=== PATIENT | female | born 1985 | race Caucasian/White ===

== ENCOUNTER 2017-09-06 21:43 | Emergency (ER) | payer MEDICAID ==
--- NOTE | 2017-09-06 22:38 | EDM.PDOC ---
ED HPI GENERAL MEDICAL PROBLEM - General Chief Complaint: General Stated Complaint: ABDOMINAL PAIN / RESTLESS LEGS Time Seen by Provider: 09/06/17 22:27 Source of Information: Reports: Patient, RN Notes Reviewed History Limitations: Reports: No Limitations - History of Present Illness INITIAL COMMENTS - FREE TEXT/NARRATIVE: 32-year-old female presents emergency department today with leg discomfort she is postop day 8 from gastric bypass she states she's doing well in that aspect but she's had this uncomfortable restless feeling in her legs for the last day or so and is progressively getting worse - Related Data Allergies Allergy/AdvReac Type Severity Reaction Status Date / Time No Known Allergies Allergy Verified 09/06/17 22:15 Home Meds: Home Meds . [Unable to Verify Home Med List] 09/06/17 [History] Past Medical History Gastrointestinal History: Reports: Irritable Bowel Syndrome PSYCHOLOGY FELLOW History: Reports: Endometrial Ablation, Endocrine/Metabolic History: Reports: Diabetes, Type II, Obesity/BMI 30+ - Past Surgical History GI Surgical History: Reports: Bariatric Procedure, Cholecystectomy, Colonoscopy , EGD Female Surgical History: Reports: Hysterectomy Social & Family History - Tobacco Use Smoking Status *Q: Never Smoker - Caffeine Use Caffeine Use: Reports: None - Recreational Drug Use Recreational Drug Use: No ED ROS GENERAL - Review of Systems Review Of Systems: See Below Constitutional: Reports: No Symptoms Respiratory: Reports: No Symptoms Cardiovascular: Reports: No Symptoms GI/Abdominal: Reports: No Symptoms Musculoskeletal: Reports: Leg Pain, Muscle Pain ED EXAM, GENERAL - Physical Exam Exam: See Below Free Text/Narrative:: Examination of lower extremities I don't appreciate any edema there is no erythema full range of motion both lower extremities, no tenderness to palpation Exam Limited By: No Limitations General Appearance: Alert, WD/WN, No Apparent Distress Respiratory/Chest: No Respiratory Distress Course - Vital Signs Last Recorded V/S: Last Vital Signs Temp 97.7 F 09/06/17 22:17 Pulse 73 09/06/17 22:17 Resp 18 09/06/17 22:17 BP 116/84 09/06/17 22:17 Pulse Ox 96 09/06/17 22:17 - Orders/Labs/Meds Orders: Active Orders 24 hr Category Date Time Status VL Duplex Lwr Ext Veins Comp [US] Stat Exams 09/06/17 22:30 Taken Labs: Laboratory Tests 09/06/17 09/06/17 Range/Units 22:30 22:30 WBC 9.1 (4.5-11.0) K/uL RBC 4.50 (3.30-5.50) M/uL Hgb 13.0 (12.0-15.0) g/dL Hct 38.6 (36.0-48.0) % MCV 86 (80-98) fL MCH 29 (27-31) pg MCHC 34 (32-36) % Plt Count 398 (150-400) K/uL Neut % (Auto) 58 (36-66) % Lymph % (Auto) 30 (24-44) % Long % (Auto) 8 H (2-6) % Eos % (Auto) 4 (2-4) % Baso % (Auto) 0 (0-1) % Sodium 146 (140-148) mmol/L Potassium 3.8 (3.6-5.2) mmol/L Chloride 105 (100-108) mmol/L Carbon Dioxide 31 (21-32) mmol/L Anion Gap 10.4 (5.0-14.0) mmol/L BUN 10 (7-18) mg/dL Creatinine 0.8 (0.6-1.0) mg/dL Est Cr Clr Drug Dosing 71.17 mL/min Estimated GFR (MDRD) > 60 (>60) Glucose 101 (74-106) mg/dL Calcium 8.7 (8.5-10.1) mg/dL Meds: Medications Discontinued Medications Generic Name Dose Route Start Last Admin Trade Name Freq PRN Reason Stop Dose Admin Hydrocodone Bitart/Acetaminophen 5 ml 09/06/17 23:10 09/06/17 23:18 Acetaminophen/Hydrocodone 108-2.5 Mg/5 Ml PO 09/06/17 23:11 5 ml ONETIME ONE Administration Pramipexole Dihydrochloride 0.125 mg 09/06/17 23:41 09/06/17 23:53 Mirapex PO 09/06/17 23:42 0.125 mg NOW STA Administration Departure - Departure Time of Disposition: 00:18 Disposition: Home, Self-Care 01 Condition: Good Clinical Impression: Restless leg - Discharge Information Referrals: Janie Sharpe MD [Primary Care Provider] - Forms: ED Department Discharge Additional Instructions: Try the Mirapex as needed at night, keep your follow-up appointment with your primary care provider on Monday, call return to the emergency department with worsening of symptoms - My Orders Last 24 Hours: My Active Orders 09/06/17 22:30 VL Duplex Lwr Ext Veins Comp [US] Stat - Assessment/Plan Last 24 Hours: My Active Orders 09/06/17 22:30 VL Duplex Lwr Ext Veins Comp [US] Stat Plan: Assessment Acuity = acute Site and laterality = restless legs complicated patient is postop day 8 gastric bypass Etiology = unclear etiology Manifestations = none Location of injury = Home Lab values = CBC, BMP unremarkable ultrasound lower extremities bilaterally is negative Plan She was given 1 dose of Mirapex 0.125 mg which did provide significant relief enough that she could get some rest discharge home with Mirapex 0.125 mg 1 tab by mouth daily at bedtime total #20 she has a follow-up appointment with her primary care provider on Monday This note was dictated using [employer] voice recognition software please call with any questions on syntax or aldo.
[2017-09-06] MEDS ORDERED: Acetaminophen/HYDROcodone 108-2.5 MG/5 ML Soln 15 ML UD Cup PO ONE (23:10)
[2017-09-06] MEDS ORDERED: Pramipexole 0.5 MG Tab PO STA (23:41)
--- NOTE | 2017-09-07 09:00 | US ---
BILATERAL LOWER EXTREMITY VENOUS DOPPLER STUDY CLINICAL HISTORY: : Bilateral leg pain FINDINGS: Real-time and Doppler images were obtained through both lower extremities from the common f emoral veins to the calf veins. Patient is evaluated for flow, compressibility and augmentation. No filling defects are identified. All deep veins were compressible. There was normal flow and augmen tation. IMPRESSION: No evidence of deep venous thrombosis in either lower extremity
== END 2017-09-07 00:32 | disposition home or self-care (01) ==
LOC: JP.ED 21:43
DX: G25.81 Restless legs syndrome (principal); E11.9 Type 2 diabetes mellitus without complications; E66.9 Obesity, unspecified; Z98.890 Other specified postprocedural states
CPT/HCPCS: 36415; 80048; 85025; 93970; 99284; A9270

== ENCOUNTER 2017-12-22 19:23 | Emergency (ER) | payer MEDICAID ==
--- NOTE | 2017-12-22 20:09 | EDM.PDOC ---
ED HPI GENERAL MEDICAL PROBLEM - General Chief Complaint: General Stated Complaint: SHAKING Time Seen by Provider: 12/22/17 20:06 Source of Information: Reports: Patient History Limitations: Reports: No Limitations - History of Present Illness INITIAL COMMENTS - FREE TEXT/NARRATIVE: pt has had a fine tremor that gets very severe at times. Onset: Gradual, Other ( this has gone on for a long time. ) Duration: Week(s): Location: Reports: Upper Extremity, Left, Upper Extremity, Right, Lower Extremity, Left, Lower Extremity, Right ( She gets some numbness in the lower extremities when she has the shaking. 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, Endocrine/Metabolic History: Reports: Diabetes, Type II, Obesity/BMI 30+ - Past Surgical History GI Surgical History: Reports: Bariatric Procedure, Cholecystectomy, Colonoscopy , EGD Female Surgical History: Reports: Hysterectomy Social & Family History - Caffeine Use Caffeine Use: Reports: None ED ROS GENERAL - Review of Systems Review Of Systems: See Below Constitutional: Reports: No Symptoms HEENT: Reports: No Symptoms Respiratory: Reports: No Symptoms Cardiovascular: Reports: No Symptoms Endocrine: Reports: No Symptoms GI/Abdominal: Reports: No Symptoms : Reports: No Symptoms Musculoskeletal: Reports: Other ( Pt has a fine tremor. ) Skin: Reports: No Symptoms ED EXAM, GENERAL - Physical Exam Exam: See Below Free Text/Narrative:: pt arrived with a history of tremor which has been most of her life. She feels this is getting worse. Exam Limited By: No Limitations General Appearance: Alert, Other (pupils equal and reactive. ) Ears: Normal TMs Nose: Normal Inspection Throat/Mouth: Normal Inspection Head: Atraumatic Neck: Normal Inspection Respiratory/Chest: No Respiratory Distress Cardiovascular: Regular Rate, Rhythm GI/Abdominal: Soft, Non-Tender Rectal (Female) Exam: Deferred Back Exam: Normal Inspection Extremities: Other (pt has severe tremor at times and has numbness in both legs. ) Neurological: Alert, Oriented, Normal Cognition Course - Vital Signs Last Recorded V/S: Last Vital Signs Temp 36.5 C 12/22/17 20:03 Pulse 55 L 12/22/17 20:03 Resp 15 12/22/17 20:03 BP 126/70 12/22/17 20:03 Pulse Ox 95 12/22/17 20:03 - Orders/Labs/Meds Orders: Active Orders 24 hr Category Date Time Status CULTURE STREP A CONFIRMATION [RM] Stat Lab 12/22/17 20:04 Results CULTURE URINE [] Stat Lab 12/22/17 20:30 Received SAMMI PREP [MYC] Stat Lab 12/22/17 20:07 Ordered STREP SCRN A RAPID W CULT CONF [RM] Stat Lab 12/22/17 20:04 Ordered UA W/MICROSCOPIC [URIN] Urgent Lab 12/22/17 20:13 Ordered Labs: Laboratory Tests 12/22/17 12/22/17 12/22/17 Range/Units 20:13 20:23 20:23 WBC 6.9 (4.5-11.0) K/uL RBC 4.35 (3.30-5.50) M/uL Hgb 12.8 (12.0-15.0) g/dL Hct 38.2 (36.0-48.0) % MCV 88 (80-98) fL MCH 29 (27-31) pg MCHC 34 (32-36) % Plt Count 310 (150-400) K/uL Neut % (Auto) 47 (36-66) % Lymph % (Auto) 44 (24-44) % [place] % (Auto) 7 H (2-6) % Eos % (Auto) 2 (2-4) % Baso % (Auto) 0 (0-1) % Sodium (140-148) mmol/L Potassium (3.6-5.2) mmol/L Chloride (100-108) mmol/L Carbon Dioxide (21-32) mmol/L Anion Gap (5.0-14.0) mmol/L BUN (7-18) mg/dL Creatinine (0.6-1.0) mg/dL Est Cr Clr Drug Dosing mL/min Estimated GFR (MDRD) (>60) Glucose (74-106) mg/dL Calcium (8.5-10.1) mg/dL Total Bilirubin (0.2-1.0) mg/dL AST (15-37) U/L ALT (12-78) U/L Alkaline Phosphatase (46-116) U/L Total Protein (6.4-8.2) g/dL Albumin (3.4-5.0) g/dL Globulin (2.3-3.5) g/dL Albumin/Globulin Ratio (1.2-2.2) TSH, Ultra Sensitive 0.720 (0.358-3.740) uIU/mL Urine Color Yellow Urine Appearance Clear Urine pH 6.0 (4.5-8.0) Ur Specific [place] 1.025 (1.008-1.030) Urine Protein Negative (NEGATIVE) mg/dL Urine Glucose (UA) Normal (NEGATIVE) mg/dL Urine Ketones Negative (NEGATIVE) mg/dL Urine Occult Blood Negative (NEGATIVE) Urine Nitrite Negative (NEGATIVE) Urine Bilirubin Small (NEGATIVE) Urine Urobilinogen 1 (NORMAL) mg/dL Ur Leukocyte Esterase Negative (NEGATIVE) Urine RBC 0-5 (0-5) Urine WBC 10-20 H (0-5) Ur Epithelial Cells Few Amorphous Sediment Not seen Urine Bacteria Moderate Urine Mucus Many 12/22/17 Range/Units 20:23 WBC (4.5-11.0) K/uL RBC (3.30-5.50) M/uL Hgb (12.0-15.0) g/dL Hct (36.0-48.0) % MCV (80-98) fL MCH (27-31) pg MCHC (32-36) % Plt Count (150-400) K/uL Neut % (Auto) (36-66) % Lymph % (Auto) (24-44) % [place] % (Auto) (2-6) % Eos % (Auto) (2-4) % Baso % (Auto) (0-1) % Sodium 144 (140-148) mmol/L Potassium 3.6 (3.6-5.2) mmol/L Chloride 106 (100-108) mmol/L Carbon Dioxide 29 (21-32) mmol/L Anion Gap 9.3 (5.0-14.0) mmol/L BUN 12 (7-18) mg/dL Creatinine 0.7 (0.6-1.0) mg/dL Est Cr Clr Drug Dosing 81.34 mL/min Estimated GFR (MDRD) > 60 (>60) Glucose 95 (74-106) mg/dL Calcium 8.4 L (8.5-10.1) mg/dL Total Bilirubin 0.4 (0.2-1.0) mg/dL AST 15 (15-37) U/L ALT 32 (12-78) U/L Alkaline Phosphatase 75 (46-116) U/L Total Protein 7.5 (6.4-8.2) g/dL Albumin 3.7 (3.4-5.0) g/dL Globulin 3.8 H (2.3-3.5) g/dL Albumin/Globulin Ratio 1.0 L (1.2-2.2) TSH, Ultra Sensitive (0.358-3.740) uIU/mL Urine Color Urine Appearance Urine pH (4.5-8.0) Ur Specific [place] (1.008-1.030) Urine Protein (NEGATIVE) mg/dL Urine Glucose (UA) (NEGATIVE) mg/dL Urine Ketones (NEGATIVE) mg/dL Urine Occult Blood (NEGATIVE) Urine Nitrite (NEGATIVE) Urine Bilirubin (NEGATIVE) Urine Urobilinogen (NORMAL) mg/dL Ur Leukocyte Esterase (NEGATIVE) Urine RBC (0-5) Urine WBC (0-5) Ur Epithelial Cells Amorphous Sediment Urine Bacteria Urine Mucus - Re-Assessments/Exams Free Text/Narrative Re-Assessment/Exam: 12/22/17 21:22 sammi was positive, strept was neg. lsb is normal except pt has a UTI 12/22/17 21:23 Departure - Departure Time of Disposition: 21:23 Disposition: Home, Self-Care 01 Condition: Fair Clinical Impression: Oral yeast infection, UTI (urinary tract infection) - Discharge Information Referrals: Janie Sharpe MD [Primary Care Provider] - Forms: ED Department Discharge Care Plan Goals: push fluids, cipro 500mg bid for 5 days, [id number] 1 tab no and repeat in 5 days. When pt sees her regular provider she may need to have a referal to neurology - My Orders Last 24 Hours: My Active Orders 12/22/17 20:04 CULTURE STREP A CONFIRMATION [RM] Stat STREP SCRN A RAPID W CULT CONF [RM] Stat 12/22/17 20:07 SAMMI PREP [MYC] Stat 12/22/17 20:13 UA W/MICROSCOPIC [URIN] Urgent 12/22/17 20:30 CULTURE URINE [RM] Stat - Assessment/Plan Last 24 Hours: My Active Orders 12/22/17 20:04 CULTURE STREP A CONFIRMATION [] Stat STREP SCRN A RAPID W CULT CONF [RM] Stat 12/22/17 20:07 SAMMI PREP [MYC] Stat 12/22/17 20:13 UA W/MICROSCOPIC [URIN] Urgent 12/22/17 20:30 CULTURE URINE [] Stat
== END 2017-12-22 21:48 | disposition home or self-care (01) ==
LOC: JP.ED 19:23
DX: N39.0 Urinary tract infection, site not specified (principal); B37.0 Candidal stomatitis; E11.9 Type 2 diabetes mellitus without complications
CPT/HCPCS: 36415; 80053; 81001; 84443; 85025; 87081; 87086; 87220; 87430; 99285

== ENCOUNTER 2018-02-10 19:01 | Emergency (ER) | payer MEDICAID ==
--- NOTE | 2018-02-10 19:45 | EDM.PDOC ---
ED HPI GENERAL MEDICAL PROBLEM - General Chief Complaint: Abdominal Pain Stated Complaint: MEDICAL VIA [facility] Time Seen by Provider: 02/10/18 19:03 Source of Information: Reports: Patient History Limitations: Reports: No Limitations - History of Present Illness INITIAL COMMENTS - FREE TEXT/NARRATIVE: 32 yo female arrives via ambulance, pt regular day then sudden onset of palvic pain radiating into left upper quad. earlyer this moth she was tx for UTI. occasional dysuria. 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, Psychiatric History: Reports: Anxiety Endocrine/Metabolic History: Reports: Diabetes, Type II, Obesity/BMI 30+, Other (See Below) Other Endocrine/Metabolic History: non diabetic since bariatric surgery - Past Surgical History GI Surgical History: Reports: Bariatric Procedure, Cholecystectomy, Colonoscopy , EGD Female Surgical History: Reports: Hysterectomy Social & Family History - Tobacco Use Smoking Status *Q: Never Smoker - Caffeine Use Caffeine Use: Reports: None - Recreational Drug Use Recreational Drug Use: No ED ROS GENERAL - Review of Systems Review Of Systems: See Below Constitutional: Denies: Fever, Chills, Fatigue Respiratory: Denies: Shortness of Breath, Wheezing Cardiovascular: Denies: Chest Pain GI/Abdominal: Reports: Abdominal Pain : Reports: Dysuria, Flank Pain. Denies: Discharge, Frequency ED EXAM, GI/ABD - Physical Exam Exam: See Below Exam Limited By: No Limitations General Appearance: Alert, WD/WN, No Apparent Distress Respiratory/Chest: No Respiratory Distress, Lungs Clear, Normal Breath Sounds, Chest Non-Tender. No: Crackles, Rhonchi, Wheezing Cardiovascular: Regular Rate, Rhythm, No Edema, No Murmur, No Rub GI/Abdominal Exam: Normal Bowel Sounds, Soft, No Organomegaly, No Distention, No Mass, Tender (general upper) Course - Vital Signs Last Recorded V/S: Last Vital Signs Temp 36.6 C 02/10/18 19:37 Pulse 64 02/10/18 20:53 Resp 14 02/10/18 20:53 BP 122/81 02/10/18 20:53 Pulse Ox 94 L 02/10/18 20:53 - Orders/Labs/Meds Orders: Active Orders 24 hr Category Date Time Status UA W/MICROSCOPIC [URIN] Stat Lab 02/10/18 20:50 Ordered Sodium Chloride 0.9% [Normal Saline] 1,000 ml Med 02/10/18 19:45 Active IV ASDIRECTED Medication Orders Sodium Chloride (Normal Saline) 1,000 mls @ 999 mls/hr IV ASDIRECTED TYLER Last Admin: 02/10/18 20:07 Dose: 999 mls/hr Labs: Laboratory Tests 02/10/18 02/10/18 02/10/18 Range/Units 19:55 19:55 20:50 WBC 7.1 (4.5-11.0) K/uL RBC 4.35 (3.30-5.50) M/uL Hgb 12.9 (12.0-15.0) g/dL Hct 38.4 (36.0-48.0) % MCV 88 (80-98) fL MCH 30 (27-31) pg MCHC 34 (32-36) % Plt Count 281 (150-400) K/uL Neut % (Auto) 50 (36-66) % Lymph % (Auto) 39 (24-44) % [place] % (Auto) 9 H (2-6) % Eos % (Auto) 2 (2-4) % Baso % (Auto) 0 (0-1) % Sodium 146 (140-148) mmol/L Potassium 3.6 (3.6-5.2) mmol/L Chloride 107 (100-108) mmol/L Carbon Dioxide 31 (21-32) mmol/L Anion Gap 8.2 (5.0-14.0) mmol/L BUN 11 (7-18) mg/dL Creatinine 0.7 (0.6-1.0) mg/dL Est Cr Clr Drug Dosing 81.34 mL/min Estimated GFR (MDRD) > 60 (>60) Glucose 75 (74-106) mg/dL Calcium 8.4 L (8.5-10.1) mg/dL Total Bilirubin 0.4 (0.2-1.0) mg/dL AST 15 (15-37) U/L ALT 31 (12-78) U/L Alkaline Phosphatase 83 (46-116) U/L Total Protein 7.1 (6.4-8.2) g/dL Albumin 3.6 (3.4-5.0) g/dL Globulin 3.5 (2.3-3.5) g/dL Albumin/Globulin Ratio 1.0 L (1.2-2.2) Urine Color Yellow Urine Appearance Clear Urine pH 8.0 (4.5-8.0) Ur Specific [place] 1.015 (1.008-1.030) Urine Protein Negative (NEGATIVE) mg/dL Urine Glucose (UA) Normal (NEGATIVE) mg/dL Urine Ketones Negative (NEGATIVE) mg/dL Urine Occult Blood Negative (NEGATIVE) Urine Nitrite Negative (NEGATIVE) Urine Bilirubin Negative (NEGATIVE) Urine Urobilinogen Normal (NORMAL) mg/dL Ur Leukocyte Esterase Moderate (NEGATIVE) Urine RBC 0-5 (0-5) Urine WBC 0-5 (0-5) Ur Epithelial Cells Few Amorphous Sediment Few Urine Bacteria Rare Urine Mucus Few Meds: Medications Generic Name Dose Route Start Last Admin Trade Name Freq PRN Reason Stop Dose Admin Sodium Chloride 1,000 mls @ 999 mls/hr 02/10/18 19:45 02/10/18 20:07 Normal Saline IV 999 mls/hr ASDIRECTED TYLER Administration Discontinued Medications Generic Name Dose Route Start Last Admin Trade Name Freq PRN Reason Stop Dose Admin Ondansetron HCl 4 mg 02/10/18 19:42 02/10/18 20:12 Zofran IVPUSH 02/10/18 19:43 4 mg ONETIME ONE Administration Pantoprazole Sodium 40 mg 02/10/18 19:41 02/10/18 20:12 Protonix Iv IVPUSH 02/10/18 19:42 40 mg ONETIME ONE Administration - Re-Assessments/Exams Free Text/Narrative Re-Assessment/Exam: 02/10/18 21:13 pain improved 2/10, mildly nauseated ready to go home. instructed to return to soft diet until pain resolves if pain does not resolve by Monday follow-up with surgeon Departure - Departure Time of Disposition: 21:15 Disposition: Home, Self-Care 01 Condition: Good Clinical Impression: Gastroenteritis - Discharge Information *PRESCRIPTION DRUG MONITORING PROGRAM REVIEWED*: Not Applicable *COPY OF PRESCRIPTION DRUG MONITORING REPORT IN PATIENT [place]: Not Applicable Instructions: Nausea and Vomiting, Adult, [id number] Referrals: PCP,None [Primary Care Provider] - Forms: ED Department Discharge Additional Instructions: zofran as needed for nausea return to soft diet until pain resolves maintain hydration - My Orders Last 24 Hours: My Active Orders 02/10/18 19:45 Sodium Chloride 0.9% [Normal Saline] 1,000 ml IV ASDIRECTED 02/10/18 20:50 UA W/MICROSCOPIC [URIN] Stat - Assessment/Plan Last 24 Hours: My Active Orders 02/10/18 19:45 Sodium Chloride 0.9% [Normal Saline] 1,000 ml IV ASDIRECTED 02/10/18 20:50 UA W/MICROSCOPIC [URIN] Stat
[2018-02-10] MEDS: Sodium Chloride 0.9% 1,000 ML IV SCH (20:07)
[2018-02-10] MEDS: Ondansetron 4 MG/2 ML SDV IVPUSH ONE (20:12)
[2018-02-10] MEDS: Pantoprazole 40 MG Vial IVPUSH ONE (20:12)
== END 2018-02-10 21:29 | disposition home or self-care (01) ==
LOC: JP.ED 19:01
DX: K52.9 Noninfective gastroenteritis and colitis, unspecified (principal); E11.9 Type 2 diabetes mellitus without complications; E66.9 Obesity, unspecified
CPT/HCPCS: 36415; 80053; 81001; 85025; 96361; 96374; 96375; 99284; C9113; J2405; J7030

== ENCOUNTER 2018-12-01 19:00 | Emergency (ER) | payer MEDICAID ==
[2018-12-01] MEDS ORDERED: Sodium Chloride 0.9% 10 ML Syringe FLUSH PRN (19:27)
--- NOTE | 2018-12-01 19:42 | EDM.PDOC ---
ED HPI GENERAL MEDICAL PROBLEM - General Chief Complaint: Abdominal Pain Stated Complaint: LEFT SIDE UPPER ABDOMINAL PAIN Time Seen by Provider: 12/01/18 19:25 Source of Information: Reports: Patient, RN History Limitations: Reports: Other (minimal old records) - History of Present Illness INITIAL COMMENTS - FREE TEXT/NARRATIVE: 33 yo female from [place], [place] presents with LUQ abdominal pain that she states is from adhesions. She has no fever, vomiting, melena, constipation or diarrhea. She had Ele-N-Y gastric bypass in [place], [place] in the recent past and that surgeon is the one who told her that this was her problem and that he did not want to operate on her at this time. She went to the ER in [place] a week ago and had a work up and was told to follow up with her primary. She talked to the primary who didn't want to do anything about this at this time. Her surgeon prescribed Tramadol for her pain, but this was for some unknown reason not covered by her insurance company so she didn't get it filled. A friend told her about Dr. Sharpe so she called recently and talked to Maryjane Monroe who told her that if she gets worse to come to the ER in [place]. She presents now admitting that she is not worse, but tired of dealing with it. Onset: Unknown/Unsure Duration: Week(s):, Chronic, Constant Location: Reports: Abdomen (LUQ) Quality: Reports: Dull Severity: Moderate Improves with: Reports: None Worsens with: Reports: None Context: Reports: Other (see HPI) Associated Symptoms: Denies: Chest Pain, Cough, Diaphoresis, Fever/Chills, Loss of Appetite, Malaise, Nausea/Vomiting, Rash, Shortness of Breath Treatments SAP BI ARCHITECT: Reports: Acetaminophen - Related Data Allergies Allergy/AdvReac Type Severity Reaction Status Date / Time No Known Allergies Allergy Verified 12/01/18 19:11 Home Meds: Home Meds Estradiol 12/01/18 [History] Pantoprazole [ProTONIX] 12/01/18 [History] Past Medical History HEENT History: Reports: Impaired Vision Respiratory History: Reports: Sleep Apnea, Other (See Below) Other Respiratory History: Cpap Gastrointestinal History: Reports: Irritable Bowel Syndrome 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, Psychiatric History: Reports: Anxiety Endocrine/Metabolic History: Reports: Diabetes, Type II, Obesity/BMI 30+, Other (See Below) Other Endocrine/Metabolic History: non diabetic since bariatric surgery - Past Surgical History GI Surgical History: Reports: Bariatric Procedure, Cholecystectomy, Colonoscopy , EGD Female Surgical History: Reports: Hysterectomy Social & Family History - Tobacco Use Smoking Status *Q: Never Smoker - Caffeine Use Caffeine Use: Reports: None ED ROS GENERAL - Review of Systems Review Of Systems: See Below Constitutional: Reports: No Symptoms HEENT: Reports: No Symptoms Respiratory: Reports: No Symptoms Cardiovascular: Reports: No Symptoms Endocrine: Reports: No Symptoms GI/Abdominal: Reports: Abdominal Pain (LUQ). Denies: Anorexia, Black Stool, Bloody Stool, Constipation, Diarrhea, Decreased Appetite, Distension, Hematemesis, Hematochezia, Melena, Nausea, Vomiting : Reports: No Symptoms Musculoskeletal: Reports: No Symptoms Skin: Reports: No Symptoms Neurological: Reports: No Symptoms ED EXAM, GI/ABD - Physical Exam Exam: See Below Exam Limited By: No Limitations General Appearance: Alert, WD/WN, No Apparent Distress Eyes: Bilateral: Normal Appearance Ears: Normal External Exam, Normal Canal, Hearing Grossly Normal, Normal TMs Nose: Normal Inspection, No Blood Throat/Mouth: Normal Inspection, Normal Lips, Normal Oropharynx, Normal Voice, No Airway Compromise Head: Atraumatic, Normocephalic Neck: Normal Inspection, Supple, Non-Tender Respiratory/Chest: No Respiratory Distress, Lungs Clear, Normal Breath Sounds, No Accessory Muscle Use Cardiovascular: Regular Rate, Rhythm, No Edema GI/Abdominal Exam: Normal Bowel Sounds, Soft, Non-Tender, No Distention Back Exam: Normal Inspection. No: CVA Tenderness (R), CVA Tenderness (L) Extremities: Normal Inspection, Normal Range of Motion, Non-Tender, No Pedal Edema Neurological: Alert, Oriented, CN II-XII Intact, Normal Cognition, No Motor/ Sensory Deficits Psychiatric: Normal Affect, Normal Mood Skin Exam: Warm, Dry, Normal Color, No Rash Course - Vital Signs Text/Narrative:: Discussed with Dr. Adorno @ [id number] Some relief with tizanidine po. Last Recorded V/S: Last Vital Signs Temp 36.0 C 12/01/18 19:17 Pulse 58 L 12/01/18 21:03 Resp 16 12/01/18 21:03 BP 117/74 12/01/18 21:03 Pulse Ox 98 12/01/18 21:03 - Orders/Labs/Meds Orders: Active Orders 24 hr Category Date Time Status Iopamidol [Isovue-370 (76%)] Med 12/01/18 21:15 Active 100 ml IV . DIRECTED Sodium Chloride 0.9% [Saline Flush] Med 12/01/18 19:27 Active 10 ml FLUSH ASDIRECTED PRN Saline Lock Insert [OM.PC] Routine Oth 12/01/18 19:27 Ordered Medication Orders Iopamidol (Isovue-370 (76%)) 100 ml IV . DIRECTED TYLER Sodium Chloride (Saline Flush) 10 ml FLUSH ASDIRECTED PRN PRN Reason: Keep Vein Open Last Admin: 12/01/18 20:38 Dose: 10 ml Labs: Laboratory Tests 12/01/18 12/01/18 12/01/18 Range/Units 19:44 19:44 19:46 WBC 7.0 (4.5-11.0) K/uL RBC 4.19 (3.30-5.50) M/uL Hgb 12.6 (12.0-15.0) g/dL Hct 37.4 (36.0-48.0) % MCV 89 (80-98) fL MCH 30 (27-31) pg MCHC 34 (32-36) % Plt Count 268 (150-400) K/uL Sodium 144 (140-148) mmol/L Potassium 4.0 (3.6-5.2) mmol/L Chloride 105 (100-108) mmol/L Carbon Dioxide 30 (21-32) mmol/L Anion Gap 8.6 (5.0-14.0) mmol/L BUN 9 (7-18) mg/dL Creatinine 0.7 (0.6-1.0) mg/dL Est Cr Clr Drug Dosing 80.57 mL/min Estimated GFR (MDRD) > 60 (>60) Glucose 91 (74-106) mg/dL Calcium 9.0 (8.5-10.1) mg/dL Urine Color Yellow Urine Appearance Clear Urine pH 7.0 (4.5-8.0) Ur Specific [place] 1.015 (1.008-1.030) Urine Protein Negative (NEGATIVE) mg/dL Urine Glucose (UA) Normal (NEGATIVE) mg/dL Urine Ketones Negative (NEGATIVE) mg/dL Urine Occult Blood Negative (NEGATIVE) Urine Nitrite Negative (NEGATIVE) Urine Bilirubin Negative (NEGATIVE) Urine Urobilinogen Normal (NORMAL) mg/dL Ur Leukocyte Esterase Negative (NEGATIVE) Urine RBC Not seen (0-5) Urine WBC 0-5 (0-5) Ur Epithelial Cells Few Amorphous Sediment Not seen Urine Bacteria Few Urine Mucus Few Urine HCG, Qual 12/01/18 Range/Units 19:46 WBC (4.5-11.0) K/uL RBC (3.30-5.50) M/uL Hgb (12.0-15.0) g/dL Hct (36.0-48.0) % MCV (80-98) fL MCH (27-31) pg MCHC (32-36) % Plt Count (150-400) K/uL Sodium (140-148) mmol/L Potassium (3.6-5.2) mmol/L Chloride (100-108) mmol/L Carbon Dioxide (21-32) mmol/L Anion Gap (5.0-14.0) mmol/L BUN (7-18) mg/dL Creatinine (0.6-1.0) mg/dL Est Cr Clr Drug Dosing mL/min Estimated GFR (MDRD) (>60) Glucose (74-106) mg/dL Calcium (8.5-10.1) mg/dL Urine Color Urine Appearance Urine pH (4.5-8.0) Ur Specific [place] (1.008-1.030) Urine Protein (NEGATIVE) mg/dL Urine Glucose (UA) (NEGATIVE) mg/dL Urine Ketones (NEGATIVE) mg/dL Urine Occult Blood (NEGATIVE) Urine Nitrite (NEGATIVE) Urine Bilirubin (NEGATIVE) Urine Urobilinogen (NORMAL) mg/dL Ur Leukocyte Esterase (NEGATIVE) Urine RBC (0-5) Urine WBC (0-5) Ur Epithelial Cells Amorphous Sediment Urine Bacteria Urine Mucus Urine HCG, Qual Negative Meds: Medications Generic Name Dose Route Start Last Admin Trade Name Freq PRN Reason Stop Dose Admin Iopamidol 100 ml 12/01/18 21:15 Isovue-370 (76%) IV . DIRECTED TYLER Sodium Chloride 10 ml 12/01/18 19:27 12/01/18 20:38 Saline Flush FLUSH 10 ml ASDIRECTED PRN Administration Keep Vein Open Discontinued Medications Generic Name Dose Route Start Last Admin Trade Name Matheus PRN Reason Stop Dose Admin Sodium Chloride 100 mls @ 3 mls/sec 12/01/18 21:15 12/01/18 21:16 Normal Saline IV 12/01/18 21:16 3 mls/sec ONETIME ONE Administration Tizanidine HCl 4 mg 12/01/18 20:22 12/01/18 20:38 Zanaflex PO 12/01/18 20:23 4 mg NOW STA Administration - Radiology Interpretation Free Text/Narrative:: CT abd/pelvis with IV contrast-neg CT Results Date: 12/01/18 CT Results Time: 21:30 Departure - Departure Time of Disposition: 21:45 Disposition: Home, Self-Care 01 Condition: Good Clinical Impression: Nonspecific abdominal pain - Discharge Information *PRESCRIPTION DRUG MONITORING PROGRAM REVIEWED*: No *COPY OF PRESCRIPTION DRUG MONITORING REPORT IN PATIENT [place]: No Instructions: Abdominal Pain, Adult, [id number] Referrals: Janie Sharpe MD [Primary Care Provider] - Forms: ED Department Discharge Additional Instructions: Take acetaminophen and/or tizanidine as directed. Call Dr. Sharpe's office on Monday to arrange follow up. - My Orders Last 24 Hours: My Active Orders 12/01/18 19:27 Sodium Chloride 0.9% [Saline Flush] 10 ml FLUSH ASDIRECTED PRN Saline Lock Insert [OM.PC] Routine 12/01/18 21:15 Iopamidol [Isovue-370 (76%)] 100 ml IV . DIRECTED - Assessment/Plan Last 24 Hours: My Active Orders 12/01/18 19:27 Sodium Chloride 0.9% [Saline Flush] 10 ml FLUSH ASDIRECTED PRN Saline Lock Insert [OM.PC] Routine 12/01/18 21:15 Iopamidol [Isovue-370 (76%)] 100 ml IV . DIRECTED
[2018-12-01] MEDS ORDERED: tiZANidine 4 MG Tab PO STA (20:22)
[2018-12-01] MEDS ORDERED: Sodium Chloride 0.9% 100 ML IV ONE (21:15)
[2018-12-01] MEDS ORDERED: Iopamidol 755 Mg/ML 100 ML Bottle IV SCH (21:15)
--- NOTE | 2018-12-01 21:28 | CRLCT ---
INDICATION: Left upper quadrant pain, history of gastric bypass procedure TECHNIQUE: CT abdomen and pelvis acquired with 100 cc Isovue-300 IV contrast. COMPARISON: None FINDINGS: Lower chest: Unremarkable. Liver: Unremarkable. Spleen: 1.1 cm round hypodensity within the posterior spleen may represent a small hemangioma. Pancreas: Unremarkable. Gallbladder and bile ducts: S/p cholecystectomy. Adrenal glands: Unremarkable. Kidneys: Unremarkable. GI tract: Status post gastric bypass procedure. Moderate amount of feces in the colon. Appendix is normal. Vascular structures: Unremarkable. Lymph nodes: Unremarkable. Miscellaneous: Unremarkable. No free air or significant free fluid. Pelvic Organs: Status post hysterectomy. Bones: Unremarkable for age. IMPRESSION: No acute intra-abdominal inflammatory process identified. Moderate amount of feces in the colon. Status post gastric bypass procedure, hysterectomy, and cholecystectomy. Please note that all CT scans at this facility use dose modulation, iterative reconstruction, and/or weight-based dosing when appropriate to reduce radiation dose to as low as reasonably achievable. Dictated by Jayla Riggs MD @ Dec 01 2018 9:22PM Signed by Dr. Jayla Riggs @ Dec 01 2018 9:27PM
== END 2018-12-01 22:18 | disposition home or self-care (01) ==
LOC: JP.ED 19:00
DX: R10.12 Left upper quadrant pain (principal); E11.9 Type 2 diabetes mellitus without complications; F41.9 Anxiety disorder, unspecified; E66.9 Obesity, unspecified; Z79.899 Other long term (current) drug therapy; Z68.28 Body mass index [BMI] 28.0-28.9, adult
CPT/HCPCS: 36415; 74177; 80048; 81001; 81025; 85027; 99284; A9270; J7030

== ENCOUNTER 2018-12-03 10:15 | Inpatient (IN) | payer MEDICAID ==
[2018-12-03] MEDS ORDERED: Acetaminophen 325 MG Tab PO PRN (10:49)
[2018-12-03] MEDS ORDERED: Acetaminophen 650 MG Supp RECTAL PRN (10:50)
[2018-12-03] MEDS ORDERED: Ondansetron 4 MG/2 ML SDV IVPUSH PRN (10:51)
[2018-12-03] MEDS: Dextrose 5%-Lactated Ringers 1,000 ML IV SCH ×2 (11:31→19:12)
[2018-12-03] MEDS: Acetaminophen 500 MG Tab PO PRN ×2 (14:23→21:08)
[2018-12-03] MEDS: Pantoprazole 40 MG Vial IV SCH (14:26)
--- NOTE | 2018-12-03 16:24 | PCM.HP ---
H&P History of Present Illness - General Date of Service: 12/03/18 Admit Problem/Dx: Admission Diagnosis/Problem Admission Diagnosis/Problem Partial Small Bowel Obstruction Source of Information: Patient, Old Records History Limitations: Reports: No Limitations - History of Present Illness Initial Comments - Free Text/Narative: Marcella states that she has had left upper quadrant abdominal pain for several months. In July she had lysis of adhesions and a partial small bowel obstruction in July, and all the same symptoms came back. Pain is sharp, no radiation, associated with nausea. States she has had diarrhea but it is more from her IBS. Pain Scale 7 - 8 /10 constant and after eating 10/10. taking Tizanidine for pain management. Went to ED, 12/02/[address] Scan and given Tizanidine for pain. Also taking Tylenol 1000 mg every 6 hours. Marcella was living in [place], [place] and had Laparoscopic RNY Gastric Bypass Surgery in [place] on 08/31/17. 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 Diet Step 4 Protein unknown Fluids 2 - 3 water bottles a day Alcohol: occasionally once a month Smokin Caffeine: 16 oz of Caramel Latte from [employer] occasional. coffee daily Vitamins: taking a MVI daily. Prior to weight loss surgery she was diabetic. Onset of Symptoms: Reports: Gradual Duration of Symptoms: Reports: Week(s):, Constant, Getting Worse Location: Reports: Abdomen (left upper quadrant ) Quality: Reports: Sharp, Stabbing Severity: Severe Improves with: Reports: None Worsens with: Reports: Eating Associated Symptoms: Reports: Other (nausea ) Abdominal Pain Score (Numeric/FACES): 5 - Related Data Allergies/Adverse Reactions: Allergies Allergy/AdvReac Type Severity Reaction Status Date / Time No Known Allergies Allergy Verified 12/01/18 19:11 Home Medications: Home Meds Estradiol 0.5 mg PO QAM 12/01/18 [History] tiZANidine 2 mg PO Q6H PRN #14 cap 12/01/18 [Rx] Past Medical History HEENT History: Reports: Impaired Vision, Other (See Below) Other HEENT History: Wears contact lenses Respiratory History: Reports: Sleep Apnea, Other (See Below) Other Respiratory History: Cpap Gastrointestinal History: Reports: Irritable Bowel Syndrome Genitourinary History: Reports: None 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, Psychiatric History: Reports: Anxiety Endocrine/Metabolic History: Reports: Diabetes, Type II, Obesity/BMI 30+, Other (See Below) Other Endocrine/Metabolic History: non diabetic since bariatric surgery - Past Surgical History GI Surgical History: Reports: Bariatric Procedure, Cholecystectomy, Colonoscopy , EGD, Other (See Below) Other GI Surgeries/Procedures: patient States hernia in 2004 unsure what type Female Surgical History: Reports: Hysterectomy Social & Family History - Family History Family Medical History: Noncontributory - Tobacco Use Smoking Status *Q: Former Smoker Used Tobacco, but Quit: Yes Month/Year Tobacco Last Used: 2017 - Caffeine Use Caffeine Use: Reports: Coffee - Recreational Drug Use Recreational Drug Use: No H&P Review of Systems - Review of Systems: Review Of Systems: See Below General: Reports: No Symptoms HEENT: Reports: No Symptoms Pulmonary: Reports: No Symptoms Cardiovascular: Reports: No Symptoms Gastrointestinal: Reports: Abdominal Pain, Other (see chief complaint ) Genitourinary: Reports: No Symptoms Musculoskeletal: Reports: No Symptoms Skin: Reports: No Symptoms Psychiatric: Reports: No Symptoms Neurological: Reports: No Symptoms Hematologic/Lymphatic: Reports: No Symptoms Immunologic: Reports: No Symptoms Exam - Exam Exam: See Below - Vital Signs Vital Signs: Last Vital Signs Temp 97.6 F 12/03/18 15:00 Pulse 51 L 12/03/18 15:00 Resp 18 12/03/18 15:00 BP 146/71 H 12/03/18 15:00 Pulse Ox 98 12/03/18 15:00 Weight: 143 lb 4.8 oz - Exam Quality Assessment: DVT Prophylaxis General: Alert, Oriented, Mild Distress HEENT: PERRLA, Hearing Intact, Mucosa Moist & [place] Neck: Supple, Trachea Midline Lungs: Clear to Auscultation, Normal Respiratory Effort Cardiovascular: Regular Rate, Regular Rhythm GI/Abdominal Exam: Guarding, Tender (left upper and middle quadrant) (Female) Exam: Deferred Rectal (Female) Exam: Deferred Back Exam: Normal Inspection, Full Range of Motion Extremities: Normal Inspection, Normal Range of Motion Skin: Warm, Dry, Intact Neurological: Cranial Nerves Intact, Reflexes Equal Bilateral Neuro Extensive - Mental Status: Alert, Oriented x3, Normal Mood/Affect Neuro Extensive - Motor, Sensory, Reflexes: CN II-XII Intact, Normal Gait, Normal Reflexes Psychiatric: Alert, Normal Affect, Normal Mood - Problem List (1) Partial small bowel obstruction SNOMED Code(s): 738420331 ICD Code: K56.600 - PARTIAL INTESTINAL OBSTRUCTION, UNSPECIFIED TO CAUSE Status: Acute Current Visit: Yes Problem List Initiated/Reviewed/Updated: Yes Orders Last 24hrs: Active Orders 24 hr Category Date Time Status Admission Status [Patient Status] [ADT] Routine ADT 12/03/18 10:00 Active Up ad Regino [RC] ASDIRECTED Care 12/03/18 10:57 Active Verify Patient Consent Obtain [RC] ASDIRECTED Care 12/04/18 07:00 Active Vital Signs [RC] Q4H Care 12/03/18 10:57 Active Clear Liquid Diet [DIET] Diet 12/03/18 Lunch Active Acetaminophen [Tylenol Extra Strength] Med 12/03/18 10:50 Active 1,000 mg PO Q6H PRN Acetaminophen [Tylenol] Med 12/03/18 10:50 Active 650 mg RECTAL Q4H PRN Dextrose 5%-Lactated Ringers 1,000 ml Med 12/03/18 11:00 Active IV ASDIRECTED Ketamine [Ketalar] Med 12/04/18 10:45 Active 24 mg IV ASDIRECTED Ketamine [Ketalar] 50 mg Med 12/04/18 10:45 Active Sodium Chloride 0.9% [Normal Saline] 49.5 ml IV ASDIRECTED Ondansetron [Zofran] Med 12/03/18 10:51 Active 4 mg IVPUSH Q4H PRN Pantoprazole [ProTONIX IV] Med 12/03/18 14:00 Active 40 mg IV Q24H Ropivacaine [Naropin 0.5%] 32 ml Med 12/04/18 10:45 Active dexAMETHasone [Dexamethasone] 8 mg EPINEPHrine [Adrenalin] 0.4 mg Sodium Chloride 0.9% [Normal Saline] 45.6 ml NERVRT ASDIRECTED cefOXitin [Mefoxin] 2 gm Med 12/04/18 10:45 Active Sodium Chloride 0.9% [Normal Saline] 50 ml IV ONCALL SCD [Sequential Compression Device] [OM.PC] Routine Oth 12/03/18 10:58 Ordered Code Status [Resuscitation Status] Routine Resus Stat 12/03/18 10:56 Ordered Medication Orders Acetaminophen (Tylenol) 650 mg RECTAL Q4H PRN PRN Reason: ANALGESIA/FEVER Acetaminophen (Tylenol Extra Strength) 1,000 mg PO Q6H PRN PRN Reason: Pain Last Admin: 12/03/18 14:23 Dose: 1,000 mg Ropivacaine 32 ml/Dexamethasone 8 mg/Epinephrine HCl 0.4 mg/ Sodium Chloride 45.6 ml 0 ml NERVRT ASDIRECTED TYLER Dextrose/Lactated Ringer's (Dextrose 5%-Lactated Ringers) 1,000 mls @ 125 mls/ hr IV ASDIRECTED TYLER Last Admin: 12/03/18 11:31 Dose: 125 mls/hr Cefoxitin Sodium 2 gm/ Sodium (Chloride) 50 mls @ 100 mls/hr IV ONCALL ONE Stop: 12/04/18 11:14 Ketamine HCl 50 mg/ Sodium (Chloride) 50 mls @ 14.4 mls/hr IV ASDIRECTED [facility] Ketamine HCl (Ketalar) 24 mg IV ASDIRECTED [facility] Ondansetron HCl (Zofran) 4 mg IVPUSH Q4H PRN PRN Reason: Nausea Pantoprazole Sodium (Protonix Iv) 40 mg IV Q24H [facility] Last Admin: 12/03/18 14:26 Dose: 40 mg Assessment: Partial Small Bowel Obstruction SP RNY Gastric Bypass Surgery Unspecified Surgical Malabsorption Vitamin B Deficiency IBS PCOS Fatty Liver Essential Hypertension Diabetes II Resolved Hormonal Replacement Therapy Plan: Schedule and have consent signed for: Open Laparotomy with Release of Partial Small Bowel Obstruction and possible lysis of adhesions General Anesthesia - TAP Block - Ketamine Bolus and Drip NPO after - 12/04/18 - Hnerik Sharpe MD Cefoxitin 2 grams IV electronic warfare specialist to OR D5LR at 125 mls/hour Rx Protonix 40 mg IV every 24 hours IV Rx Zofran 4 mg IV every 4 hours prn nausea Rx Tylenol 1000 mg every 6 hours prn pain Clear liquid diet Up Ad regino I and O Vital Signs qid All labs were done at the clinic Maryjane Sharpe MD has been involved in the development of this case.
[2018-12-04] MEDS: Acetaminophen 500 MG Tab PO PRN (03:10)
[2018-12-04] MEDS: Dextrose 5%-Lactated Ringers 1,000 ML IV SCH ×3 (03:10→13:31)
[2018-12-04] MEDS ORDERED: Meropenem 500 MG SDV ONE (07:04)
[2018-12-04] MEDS ORDERED: fentaNYL 250 MCG/5 ML SDV ONE ×2 (09:22→12:30)
[2018-12-04] MEDS ORDERED: cefOXitin 2 GM in Sodium Chloride 0.9% 50 ML IV ONE (10:45)
[2018-12-04] MEDS ORDERED: Ropivacaine 32 ML, dexAMETHasone 8 MG, EPINEPHrine 0.4 MG, Sodium Chloride 0.9% 45.6 ML NERVRT SCH ×4 (10:45)
[2018-12-04] MEDS ORDERED: Ketamine 500 MG/5 ML MDV IV SCH (10:45)
[2018-12-04] MEDS ORDERED: Ketamine 50 MG in Sodium Chloride 0.9% 49.5 ML IV SCH (10:45)
[2018-12-04] MEDS ORDERED: Bupivacaine 0.5%/EPINEPHrine 1:200,000 50 ML MDV ONE (12:18)
[2018-12-04] MEDS ORDERED: Propofol 200 MG/20 ML SDV ONE (12:26)
[2018-12-04] MEDS ORDERED: Dexamethasone 4 MG/ML SDV ONE (12:26)
[2018-12-04] MEDS ORDERED: Glycopyrrolate 0.2 MG/ML 5 ML MDV ONE (12:26)
[2018-12-04] MEDS ORDERED: Rocuronium 50 MG/5 ML Vial ONE (12:26)
[2018-12-04] MEDS ORDERED: Ondansetron 4 MG/2 ML SDV ONE (12:26)
[2018-12-04] MEDS ORDERED: Succinylcholine 200 MG/10 ML MDV ONE (12:26)
[2018-12-04] MEDS ORDERED: Neostigmine Methylsulfate 1 MG/ML 5 ML Syringe ONE (12:26)
[2018-12-04] MEDS ORDERED: hydrOXYzine HCl 100 MG/2 ML SDV IM ONE (13:49)
[2018-12-04] MEDS: Pantoprazole 40 MG Vial IV SCH (14:42)
[2018-12-04] MEDS ORDERED: Dextrose 5%-Lactated Ringers 1,000 ML IV SCH (15:30)
[2018-12-04] MEDS ORDERED: Labetalol 20 MG/4 ML Syringe IVPUSH PRN (15:32)
[2018-12-04] MEDS ORDERED: Metoclopramide 10 MG/2 ML SDV IVPUSH PRN (15:32)
[2018-12-04] MEDS ORDERED: diphenhydrAMINE 50 MG/ML SDV IVPUSH PRN (15:32)
[2018-12-04] MEDS ORDERED: hydrOXYzine HCl 100 MG/2 ML SDV IM PRN (15:32)
[2018-12-04] MEDS ORDERED: MVI, Adult with Vitamin K 10 ML, Thiamine 200 MG, Chromium/Copper/Mang/Selen/Zn 1 ML in... IV SCH ×4 (16:00)
[2018-12-04] MEDS: Acetaminophen 325 MG Tab PO SCH ×2 (17:02→23:39)
[2018-12-04] MEDS: HYDROmorphone 1 MG/ML Syringe IV PRN ×2 (17:06→23:40)
[2018-12-04] MEDS: cefOXitin 2 GM in Sodium Chloride 0.9% 50 ML IV SCH ×2 (17:17→23:39)
[2018-12-04] MEDS: HYDROmorphone 0.5 MG/0.5 ML Syringe IVPUSH PRN ×2 (19:16→20:42)
[2018-12-04] MEDS: Heparin Sodium 5,000 Units/ML Vial SUBCUT SCH (20:45)
[2018-12-05] MEDS ORDERED: Iopamidol 510 MG/ML 50 ML SDV PO ONE (03:01)
[2018-12-05] MEDS: HYDROmorphone 1 MG/ML Syringe IV PRN (03:08)
--- NOTE | 2018-12-05 04:28 | CRLCR ---
Indication: Revision of Ele-en-Y bowel resection. Technique: Abdomen 2 view Comparison: None Findings/Impression: Two submitted abdominal films. On the 1st film skin dina are present in the midline with multiple abdominal surgical clips. Oral contrast is present within small bowel loops in the left upper quadrant and left flank. On the 2nd image there is progression of the contrast into more distal small bowel loops. Some mild linear densities are present in the left upper quadrant although it appears to be part of a suture line without gross extravasation. Borderline diameter loops of small bowel in the mid abdomen. Dictated by Alfonso Grier MD @ Dec 05 2018 4:24AM Signed by Dr. Alfonso Grier @ Dec 05 2018 4:26AM
[2018-12-05] MEDS: Acetaminophen 325 MG Tab PO SCH ×4 (04:54→22:39)
[2018-12-05] MEDS: cefOXitin 2 GM in Sodium Chloride 0.9% 50 ML IV SCH (04:56)
[2018-12-05] MEDS ORDERED: Ondansetron 4 MG Tab.DIS PO PRN (07:53)
[2018-12-05] MEDS ORDERED: Dextrose 5%-Lactated Ringers 1,000 ML IV SCH (08:00)
[2018-12-05] MEDS: HYDROmorphone 2 MG Tab PO PRN ×4 (09:18→20:45)
[2018-12-05] MEDS: Heparin Sodium 5,000 Units/ML Vial SUBCUT SCH ×2 (09:23→20:24)
--- NOTE | 2018-12-05 11:33 | PN ---
DATE OF SERVICE: 12/05/2018 SUBJECTIVE: Marcella is postoperative day #1. She states her pain is controlled. She has been up ambulating. Vital signs stable. REVIEW OF SYSTEMS: Remainder of review of systems negative for any pertinent positives and negatives. OBJECTIVE: GENERAL: Marcella is a pleasant 33-year-old female. VITAL SIGNS: TPR is 96.1, 63, 16, and blood pressure 160/86. HEENT: Negative. NECK: Supple. HEART: Regular rate and rhythm. LUNGS: Clear. ABDOMEN: Dressings dry and intact. Abdominal binder is on. EXTREMITIES: SCDs are on and no peripheral edema. ASSESSMENT: Exploratory laparotomy with lysis of adhesions, 1. Small bowel resection. 2. Secondary enterostomy to re-establish Ele-en-Y small bowel anatomy. 3. Repair of incarcerated incisional hernia and mobilization of the omentum for partial small bowel obstruction secondary to the stricture at the jejunojejunostomy and incarcerated incisional trocar site hernia. Date of surgery, 12/04/2018. PLAN: 1. Discontinue continuous pulse ox. 2. Dressing off and may shower. 3. Consult Bariatric Services, new patient. 4. Step-2 gastric bypass diet for breakfast and step-3 gastric bypass diet for lunch. 5. Decrease D5LR to 100 mL per hour. 6. Discontinue IV Dilaudid. 7. Dilaudid 2 to 4 mg every 4 hours p.r.n. pain. 8. Zofran ODT 4 mg every 4 hours p.r.n. nausea or vomiting. 9. Convert IV to saline lock if oral intake greater than 1 L. 10.Good pulmonary toilet. 11.We will evaluate p.r.n. or in a.m. Maryjane Monroe PA-C /[id number]
[2018-12-05] MEDS: Pantoprazole 40 MG Tab.CR PO SCH (12:55)
--- NOTE | 2018-12-05 13:56 | OR ---
DATE OF PROCEDURE: 12/04/2018 PREOPERATIVE DIAGNOSIS: Probable partial small bowel obstruction. POSTOPERATIVE DIAGNOSES: 1. 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 2. Incarcerated incisional (trocar site) hernia. OPERATIVE PROCEDURES: Exploratory laparotomy with lysis of adhesions and: 1. Reduction of small bowel volvulus and closure of internal hernia (16294). 2. Small bowel resection (96252). 3. Secondary enteroenterostomy to reestablish Ele-en-Y small bowel anatomy (51282). 4. Repair of incarcerated incisional hernia (97172). 5. Mobilization of omentum across incision and into the pelvis to limit recurrent adhesion formation between those surfaces and underlying viscera (53762). ANESTHESIA: General. INDICATION FOR PROCEDURE: This is a 33-year-old presenting status post previous Ele-en-Y gastric bypass done in [place] with symptoms suggestive of partial small bowel obstruction. The plan is to proceed with exploratory laparotomy with procedures as indicated including possible bowel resection. Potential risks including bleeding, infection, injury to underlying viscera, possible recurrence of the problem over time, leaks from any GI tract closures that might be undertaken were all gone over and the patient wishes to proceed. DETAILS OF PROCEDURE: The patient was taken to the operating room and placed in a supine position. After general endotracheal anesthesia was induced, a Alonso catheter was inserted and the abdomen prepped and draped. A midline incision from the umbilicus roughly a handsbreadth toward the xiphoid was made and carried down through the full-thickness abdominal wall. Upon entering the peritoneal cavity, there were some scattered adhesions between the anterior abdominal wall and omentum. These were taken down with cautery and at that point a general exploration was undertaken. The patient was noted to have a focal volvulus of the jejunojejunostomy between the mesentery of that anastomosis. This was reduced. There were some additional adhesions to that anastomosis, which were then taken down with a cautery as well. The patient was noted at this point to have a fixed stricture at the level of the point where the Ele limb entered the jejunojejunostomy due to chronic angulation and scarring in that area. At that point, the area of small bowel was resected with the PATTY staplers and underlying mesentery divided with PATTY staplers as well. GI tract continuity was then reestablished with initial anastomosis between what had been the distal end of the biliopancreatic limb to the proximal end of the common limb. This was done with a [id number]-[id number] enteroenterostomy with an internal firing of the Endo-PATTY 60 mm stapler, common opening was closed transversely with the same stapler, and the angles anastomosed and mesenteric defects were approximated with 3-0 Vicryl for the angles of anastomosis and 2-0 silk for the mesenteric defect. To create a somewhat more metabolically-aggressive procedure, as discussed with the patient preoperatively, we were going to alter the limb lengths if we needed to do a resection. The Ele limb was noted at this point to be 80 cm and we then selected the secondary enteroenterostomy to be 250 cm proximal to the ileocecal valve given the patient's total alimentary length of 350 cm and this would result in the patient having a long-term more robust procedure preventing recurrence of diabetes mellitus and other aspects of the metabolic syndrome. This anastomosis between the Ele limb and the bowel at that level was accomplished with the same sequence of dina. The angles were anastomosed and reinforced with some 3-0 Vicryl stitch and the mesentery then closed with a 2-0 silk stitch as well. At that point, no further intraabdominal problems were noted. The omentum was then tacked down into the pelvis which included coverage of this and previous incisions to prevent subsequent adhesion formation. The omentum was tacked down to the pelvis with some 3-0 Vicryl stitch and the closure of the abdomen was initiated. One additional note is that on entrance of the abdomen, the patient was noted to have a trocar site hernia containing preperitoneal fat within the midline incision. The hernia contents were excised and the hernia was then closed along with a primary fascial closure, which was accomplished with a #2 Vicryl stitch, the subcutaneous tissue was then approximated with some 3-0 Vicryl stitch as was the subdermal layer, and the skin closed with dina. Dressing was applied. The patient was taken to the recovery room in satisfactory condition. There were no evident complications. One final note is final measurements at this point of her small bowel anatomy would include a Ele limb of 80 cm, a common limb of 200 cm, and a biliopancreatic limb now of 220 cm. Henrik Sharpe MD /[id number]
[2018-12-05] MEDS ORDERED: MVI, Adult with Vitamin K 10 ML, Thiamine 200 MG, Chromium/Copper/Mang/Selen/Zn 1 ML in... IV SCH ×4 (16:00)
[2018-12-06] MEDS: HYDROmorphone 2 MG Tab PO PRN ×3 (00:40→09:53)
[2018-12-06] MEDS: Acetaminophen 325 MG Tab PO SCH ×5 (05:29→22:50)
[2018-12-06] MEDS: Pantoprazole 40 MG Tab.CR PO SCH (07:38)
[2018-12-06] MEDS: Heparin Sodium 5,000 Units/ML Vial SUBCUT SCH ×2 (07:38→21:17)
[2018-12-06] MEDS: Bisacodyl 5 MG Tab PO SCH ×2 (08:50→21:16)
[2018-12-06] MEDS ORDERED: Cyanocobalamin (Vitamin B12) 1,000 MCG/ML SDV IM ONE (09:00)
--- NOTE | 2018-12-06 16:15 | PN ---
DATE OF SERVICE: 12/06/2018 SUBJECTIVE: Marcella has been getting in enough fluids with encouragement. She has been up ambulating. Pain has been controlled. Vital signs have been stable. She has not had a bowel movement yet. REVIEW OF SYSTEMS: Remainder of review of systems negative for any pertinent positives and negatives. OBJECTIVE: GENERAL: Marcella Grimes is a pleasant 33-year-old female. VITAL SIGNS: TPR is 98.5, 82, 18, blood pressure 158/83. HEENT: Negative. NECK: Supple. HEART: Regular rate and rhythm. LUNGS: Clear. ABDOMEN: Dressings dry and intact. Abdominal binder is on. EXTREMITIES: Without peripheral edema. ASSESSMENT: 1. Exploratory laparotomy with lysis of adhesions. a. Reduction of small bowel volvulus and closure of internal hernia. b. Small bowel resection. c. Secondary enteroenterostomy to re-establish Ele-en-Y bowel anatomy. d. Repair of incarcerated incisional hernia. e. Mobilization of the omentum across incision and into the pelvis to limit recurrent adhesion formation between those surfaces and underlying viscera for partial small-bowel obstruction secondary to stricture at the jejunojejunostomy and associated focal small bowel volvulus. 2. Incarcerated incisional hernia and trocar site. Date of surgery 12/04/2018. Surgeon, Henrik Sharpe MD. PLAN: 1. Dulcolax tabs one neb b.i.d. until BM. 2. Saline lock IV. 3. Good pulmonary toilet. 4. We will evaluate p.r.n. or in a.m. plan, discharge in a.m. Maryjane Monroe PA-C /[id number]
[2018-12-07] MEDS: Acetaminophen 325 MG Tab PO SCH ×3 (05:21→16:33)
[2018-12-07] MEDS: Heparin Sodium 5,000 Units/ML Vial SUBCUT SCH ×2 (07:29→20:30)
[2018-12-07] MEDS: Pantoprazole 40 MG Tab.CR PO SCH (07:30)
[2018-12-07] MEDS: Bisacodyl 5 MG Tab PO SCH ×2 (10:38→20:41)
[2018-12-07] MEDS: HYDROmorphone 2 MG Tab PO PRN ×2 (14:29→20:31)
--- NOTE | 2018-12-07 14:36 | DISCH ---
ADMISSION DIAGNOSES: 1. Partial small bowel obstruction. 2. Status post Ele-en-Y gastric bypass surgery. 3. Unspecified surgical malabsorption. 4. B12 deficiency. 5. Type 2 diabetes. 6. Irritable bowel syndrome. 7. Mixed hyperlipidemia. 8. Obstructive sleep apnea, on CPAP. 9. Menopausal hot flashes. 10.Fatty liver disease. DISCHARGE DIAGNOSES: 1. Exploratory laparotomy with lysis of adhesions. 2. Reduction of small bowel volvulus and closure of internal hernia. 3. Small-bowel resection. 4. Secondary enteroenterostomy to re-establish Ele-en-Y small bowel anatomy. 5. Repair of incarcerated incisional hernia. 6. Mobilization of the omentum across the incision and into the pelvis to limit recurrent adhesion formation between those surfaces and underlying viscera for partial small bowel obstruction secondary to stricture at the jejunostomy and associated focal small bowel volvulus incarcerated incisional hernia trocar site. INDICATION: Marcella is a 33-year-old female who is status post previous Ele-en-Y gastric bypass done in [place] with symptoms suggestive of partial small bowel obstruction. After preoperative evaluation and discussion of possible risks and possible complications, she wishes to proceed with surgical procedure. HOSPITAL COURSE: Marcella was admitted on 12/03/2018 for fluids and management of pain control. On 12/04/2018, she had her operation. She had no operative complications. On postoperative day #1, she was started on a step 2 diet, advanced to step 3. She was changed to oral pain medication. On postoperative day #2, she had not had a bowel movement, she was given bowel stimulation. On 12/07/2018, she did have 1 to 2 diarrhea stool. She was able to be discharged to home. She did receive adequate bariatric education and did have education with the dietitian. Vital signs were stable. Pain was well managed. OBJECTIVE: GENERAL: Marcella Grimes is a 33-year-old female. She is alert and orientated. VITAL SIGNS: TPR is 96.3, 68, 18, blood pressure 137/83. HEENT: Negative. NECK: Supple. HEART: Regular rate and rhythm. LUNGS: Clear. ABDOMEN: Dressings dry and intact. Abdominal binder is on. Stapled incision looks good. EXTREMITIES: Without peripheral edema. DISPOSITION: Discharged to home. CONDITION: Stable and improving. HOME MEDICATIONS: 1. Dilaudid 2 mg every 6 hours p.r.n. pain #42. 2. Tylenol 1000 mg every 6 hours p.r.n. pain. 3. Tizanidine 2 mg every 6 hours p.r.n. pain. 4. Estradiol 0.5 mg every a.m. DIET: Step 3 gastric bypass diet. Drink 8 to 10 glasses of water a day. ACTIVITY: No lifting over 10 pounds. Walk at least 6 times daily inside your home. Driving: Do not drive. May shower. No tub bathing or swimming. DISCHARGE INSTRUCTIONS: Notify provider if any fever, increased pain, nausea, vomiting. Keep site clean and dry. Wear abdominal binder for 6 weeks and then as tolerated. SPECIAL INSTRUCTIONS: Use incentive spirometer 10 times every hour while awake. FOLLOWUP: Followup appointment with Maryjane Monroe PA-C, on 12/14/2018 at 10:30 a.m.
== END 2018-12-07 21:15 | disposition home or self-care (01) | DRG 330 ==
LOC: JP.MS 10:15
PROVIDERS: ADMIT Surgery; ATTEND Surgery
PROC: 0DS80ZZ Reposition Small Intestine, Open Approach (ICD-10-PCS; principal; 2018-12-04)
PROC: 0DQV0ZZ Repair Mesentery, Open Approach (ICD-10-PCS; 2018-12-04)
PROC: 0DBA0ZZ Excision of Jejunum, Open Approach (ICD-10-PCS; 2018-12-04)
PROC: 0WQF0ZZ Repair Abdominal Wall, Open Approach (ICD-10-PCS; 2018-12-04)
PROC: 0DNA0ZZ Release Jejunum, Open Approach (ICD-10-PCS; 2018-12-04)
PROC: 0DNW0ZZ Release Peritoneum, Open Approach (ICD-10-PCS; 2018-12-04)
PROC: 0DNU0ZZ Release Omentum, Open Approach (ICD-10-PCS; 2018-12-04)
PROC: 0DNU0ZZ Release Omentum, Open Approach (ICD-10-PCS; 2018-12-04)
DX: K56.2 Volvulus (principal); K43.0 Incisional hernia with obstruction, without gangrene; K56.690 Other partial intestinal obstruction; K66.0 Peritoneal adhesions (postprocedural) (postinfection); K46.9 Unspecified abdominal hernia without obstruction or gangrene; Z86.39 Personal history of other endocrine, nutritional and metabolic disease; Z98.84 Bariatric surgery status; Z98.0 Intestinal bypass and anastomosis status; H54.7 Unspecified visual loss; G47.30 Sleep apnea, unspecified; Z99.89 Dependence on other enabling machines and devices; F41.9 Anxiety disorder, unspecified; K58.9 Irritable bowel syndrome, unspecified; Z87.891 Personal history of nicotine dependence; Z90.49 Acquired absence of other specified parts of digestive tract; Z90.710 Acquired absence of both cervix and uterus
CPT/HCPCS: 74240; A9270-GY; C9113; J0171; J0330; J0694; J1100; J1170; J1644; J2185; J2405; J2704; J2710; J2765; J2795; J3010; J3410; J3411; J3420; J3490; J7042; J7050; Q9967

== ENCOUNTER 2019-07-12 09:05 | Inpatient (IN) | payer MEDICAID ==
[~2019-07-12 09:05] MED LIST: Bupivacaine 0.5%/EPINEPHrine 1:200,000 50 ML MDV ONE; Dexamethasone 4 MG/ML SDV ONE; Glycopyrrolate 0.2 MG/ML 5 ML MDV ONE; Meropenem 500 MG SDV ONE; Neostigmine Methylsulfate 1 MG/ML 5 ML Syringe ONE; Ondansetron 4 MG/2 ML SDV ONE; Propofol 200 MG/20 ML SDV ONE; Rocuronium 50 MG/5 ML Vial ONE; Succinylcholine 200 MG/10 ML MDV ONE; fentaNYL 250 MCG/5 ML SDV ONE
[2019-07-12] MEDS ORDERED: Acetaminophen 500 MG Tab PO ONE (09:30)
[2019-07-12] MEDS ORDERED: Celecoxib 200 MG Cap PO ONE (09:30)
[2019-07-12] MEDS ORDERED: Dextrose 5%-Lactated Ringers 1,000 ML IV SCH ×2 (10:15→14:00)
[2019-07-12] MEDS ORDERED: ceFAZolin 2 GM in Sodium Chloride 0.9% 50 ML IV ONE (10:30)
[2019-07-12] MEDS ORDERED: fentaNYL 100 MCG/2 ML SDV ONE (11:36)
[2019-07-12] MEDS ORDERED: Lactated Ringers 1,000 ML ONE (11:53)
[2019-07-12] MEDS ORDERED: Ketamine 50 MG in Sodium Chloride 0.9% 49.5 ML IV SCH (12:00)
[2019-07-12] MEDS ORDERED: Ropivacaine 30 ML, dexAMETHasone 8 MG, EPINEPHrine 0.4 MG, Sodium Chloride 0.9% 47.6 ML NERVRT SCH ×4 (12:00)
[2019-07-12] MEDS ORDERED: Ketamine 500 MG/5 ML MDV IV SCH (12:00)
[2019-07-12] MEDS ORDERED: hydrOXYzine HCL 100 MG/2 ML SDV IM ONE (12:54)
[2019-07-12] MEDS ORDERED: HYDROmorphone 1 MG/ML Syringe IV PRN (13:55)
[2019-07-12] MEDS ORDERED: hydrOXYzine HCL 100 MG/2 ML SDV IM PRN (13:55)
[2019-07-12] MEDS ORDERED: Ondansetron 4 MG/2 ML SDV IVPUSH PRN (13:55)
[2019-07-12] MEDS ORDERED: MVI, Adult with Vitamin K 10 ML, Chromium/Copper/Mang/Selen/Zn 1 ML in Dextrose 5%-Lact... IV ONE ×3 (16:00)
[2019-07-12] MEDS: Acetaminophen 325 MG Tab PO SCH ×2 (16:48→22:16)
[2019-07-12] MEDS: ceFAZolin 2 GM in Sodium Chloride 0.9% 50 ML IV SCH (17:09)
[2019-07-12] MEDS: HYDROmorphone 0.5 MG/0.5 ML Syringe IVPUSH PRN (19:36)
[2019-07-13] MEDS: HYDROmorphone 0.5 MG/0.5 ML Syringe IVPUSH PRN (00:24)
[2019-07-13] MEDS: ceFAZolin 2 GM in Sodium Chloride 0.9% 50 ML IV SCH ×2 (02:58→10:35)
[2019-07-13] MEDS: Acetaminophen 325 MG Tab PO SCH ×4 (03:05→22:15)
[2019-07-13] MEDS ORDERED: Dextrose 5%-Lactated Ringers 1,000 ML IV SCH (07:45)
[2019-07-13] MEDS: HYDROmorphone 2 MG Tab PO PRN ×4 (08:09→20:35)
[2019-07-13] MEDS: Docusate Sodium 100 MG Cap PO SCH ×2 (08:09→20:34)
[2019-07-13] MEDS ORDERED: FLU Vacc QS2019-20(6MOS+)/PF 60 MCG/0.5 ML SYRINGE IM ONE (10:00)
[2019-07-13] MEDS: Cyclobenzaprine 10 MG Tab PO PRN (15:38)
[2019-07-14] MEDS: HYDROmorphone 2 MG Tab PO PRN ×3 (02:20→10:56)
[2019-07-14] MEDS: Acetaminophen 325 MG Tab PO SCH ×2 (04:27→10:08)
[2019-07-14] MEDS: Cyclobenzaprine 10 MG Tab PO PRN (04:27)
[2019-07-14] MEDS: Docusate Sodium 100 MG Cap PO SCH (08:37)
[2019-07-14] MEDS: Magnesium Hydroxide 400 MG/5 ML Susp 30 ML Cup PO ONE ×2 (09:53→10:08)
--- NOTE | 2019-07-14 11:14 | PN ---
DATE OF SERVICE: 07/13/2019 The patient has been afebrile with stable vital signs. Urine output has been satisfactory. Oral intake has also been reasonably good. We will switch over to oral Dilaudid today and otherwise begin some bowel stimulation. She may be ready for discharge home tomorrow. Henrik Sharpe MD /[id number]
--- NOTE | 2019-07-15 08:58 | DISCH ---
FINAL DIAGNOSES: 1. Incarcerated incisional hernia with associated non-incarcerated umbilical hernia. 2. Extensive intraabdominal adhesions. 3. Bariatric surgery status. 4. Type 2 diabetes mellitus, now in remission, status post Ele-en-Y gastric bypass. OPERATIVE PROCEDURES: Done on 07/12/2019, diagnostic laparoscopy with: 1. Repair of incarcerated incisional hernia with mesh. 2. Repair of non-incarcerated umbilical hernia with mesh. 3. Placement of Interceed mesh to limit recurrent adhesion formation. SUMMARY: This is a 34-year-old presenting with increasingly symptomatic incisional hernia, which was located in the upper aspect of her midline incision. On the day of admission, this was repaired laparoscopically with mesh. She also had a small umbilical hernia, which was concurrently repaired. She actually had extensive adhesions between the omentum and anterior abdominal wall. Interceed mesh was placed between the pelvic and abdominal escoto to limit recurrent adhesion formation. Postoperatively, the patient has done well. She is presently tolerating regular diet. She has not moved her bowels yet. We will start her on some milk of magnesia. Otherwise, she will be discharged home with Dilaudid 2 mg p.o. q.3 to 4 hours p.r.n. pain, #40; Flexeril 10 mg p.o. t.i.d. p.r.n. for muscle spasm, #30 refill x1. She will be instructed to be on scheduled Tylenol 650 mg q.i.d. as needed for pain. We will send her home with 2 doses of milk of magnesia. She has been instructed to keep some pressure over the hernia area for 2 weeks. Then, she will be following up with Dr. Sharpe at [facility] on 07/24/2019.
--- NOTE | 2019-07-16 16:05 | OR ---
DATE OF PROCEDURE: 07/12/2019 SURGEON: Henrik Sharpe MD PREOPERATIVE DIAGNOSIS: Incisional hernia. POSTOPERATIVE DIAGNOSES: 1. Incarcerated incisional hernia. 2. Non-incarcerated umbilical hernia. 3. Extensive intraabdominal adhesions. OPERATIVE PROCEDURES: Diagnostic laparoscopy with lysis of adhesions and, 1. Repair of incarcerated incisional hernia with mesh (60465). 2. Repair of non-incarcerated umbilical hernia with mesh (45421). 3. Placement of Interceed mesh to displace pelvic and abdominal escoto from underlying viscera to limit recurrent adhesion formation (37566). ANESTHESIA: General. INDICATION FOR PROCEDURE: This is a 34-year-old female presenting with an increasingly painful incisional hernia that is located in the superior aspect of the previous upper midline incision. The plan is to proceed with diagnostic laparoscopy or laparotomy if necessary, and repair of the hernia with mesh. Potential risks of the procedure including bleeding, infection, injury to underlying viscera, problems with recurrence of the hernia or the mesh becoming infected were all discussed, and the patient wishes to proceed. DETAILS OF PROCEDURE: The patient was taken to the operating room and placed in a supine position. After general endotracheal anesthesia was induced, a Alonso catheter was inserted, and the abdomen prepped and draped. In the left lower quadrant, a transverse incision was made and the peritoneal cavity entered under direct vision with an Optiview trocar. The peritoneal cavity was inflated to 15 mmHg pressure with CO2. Laparoscope was reinserted. No underlying trocar insertion site injuries were seen. Bilateral transversus abdominis plane blocks were then placed. Eventually, four additional 5 mm trocars were placed, 2 in the lower abdomen and 2 in the upper abdomen to secure the mesh under adequate visualization. Initial examination showed quite extensive omental adhesions to the previous incision. This included some incarcerated omentum within the incisional hernia. The patient was also noted to have a non-incarcerated umbilical hernia with some preperitoneal mesh, which was reduced during the course of the dissection. Once the adhesions had been taken down, the area was mapped out. A 20.[address] mesh was then selected. This would provide a wide coverage of both hernias in terms of the edge of the mesh being well away from the fascial defects. After removal of the peritoneal sac of the incisional hernia, this was closed from within, at the fascia level with 0 Vicryl stitch. At that point then, the mesh was soaked in antibiotic-containing saline solution and placed in intraperitoneal location. An inflation balloon catheter was then pulled up through the center of the herniation and inflated. The mesh was then secured to the underside of the fascia with absorbable tacking screws. Circumferential layer was initially placed around the edges of the mesh and additional tacks placed more or less adjacent to the area of the hernia repair circumferentially as well. At that point, the balloon was deflated and removed. Mesh appeared to be well secured in all areas. The patient was felt to be high risk for recurrent adhesion formation between the mesh as well as remainder of the pelvic and abdominal wall surfaces. Given this, Interceed mesh was then placed in intraperitoneal location underneath the mesh and extending downward and underneath the pelvic areas anteriorly as well as the pelvic sidewalls. With no further problems noted, trocars were removed. The fascia at the 12 mm site was closed with 0 Vicryl stitch and the skin with 5-0 Vicryl skin stitch. The patient was taken to the recovery room in satisfactory condition. Physician escrow assistant, Maryjane Monroe, played an essential role in assisting in this case helping to position the patient, retract structures as needed, as well as suturing and cutting sutures when indicated. Her presence improved patient safety and decreased the operative time. Henrik Sharpe MD /[id number]
== END 2019-07-14 11:40 | disposition home or self-care (01) | DRG 337 ==
LOC: JP.SDSSCHI 09:05 → JP.SDS 09:06 → EDSTATUS 11:15 → JP.2SS 12:25
PROVIDERS: ADMIT Surgery; ATTEND Surgery
PROC: 0WUF4JZ Supplement Abdominal Wall with Synthetic Substitute, Percutaneous Endoscopic Approach (ICD-10-PCS; principal; 2019-07-12)
PROC: 0DNW4ZZ Release Peritoneum, Percutaneous Endoscopic Approach (ICD-10-PCS; 2019-07-12)
PROC: 3E0M45Z Introduction of Adhesion Barrier into Peritoneal Cavity, Percutaneous Endoscopic Approach (ICD-10-PCS; 2019-07-12)
DX: K43.0 Incisional hernia with obstruction, without gangrene (principal); K42.9 Umbilical hernia without obstruction or gangrene; K66.0 Peritoneal adhesions (postprocedural) (postinfection); E11.9 Type 2 diabetes mellitus without complications; F32.9 Major depressive disorder, single episode, unspecified; K21.9 Gastro-esophageal reflux disease without esophagitis; E78.5 Hyperlipidemia, unspecified; I10 Essential (primary) hypertension; G43.909 Migraine, unspecified, not intractable, without status migrainosus; E66.9 Obesity, unspecified; F17.200 Nicotine dependence, unspecified, uncomplicated; G47.30 Sleep apnea, unspecified; Z90.710 Acquired absence of both cervix and uterus; Z90.49 Acquired absence of other specified parts of digestive tract; Z79.899 Other long term (current) drug therapy; Z98.84 Bariatric surgery status; Z68.26 Body mass index [BMI] 26.0-26.9, adult
CPT/HCPCS: 88302; 90686; A9270-GY; C1713; J0171; J0330; J0690; J1100; J1170; J2020; J2185; J2405; J2704; J2710; J2795; J3010; J3410; J3490; J7050; J7120; J7121

== ENCOUNTER 2021-01-20 09:31 | Inpatient (IN) | payer MEDICAID ==
[2021-01-20] MEDS ORDERED: Acetaminophen 325 MG Tab PO PRN (09:54)
[2021-01-20] MEDS ORDERED: Acetaminophen 650 MG Supp RECTAL PRN (09:55)
[2021-01-20] MEDS ORDERED: Ondansetron 4 MG/2 ML SDV IVPUSH PRN (09:57)
[2021-01-20] MEDS ORDERED: Naloxone 0.4 MG/ML SDV IV PRN (10:00)
[2021-01-20] MEDS ORDERED: HYDROmorphone/Normal Saline 15 MG/30 ML PCA IV PRN (10:00)
[2021-01-20] MEDS ORDERED: MVI, Adult with Vitamin K 10 ML in Lactated Ringers 1,000 ML IV ONE ×2 (11:00)
[2021-01-20 11:04] LABS: CORONAVIRUS COVID-19 NAA NEGATIVE (NEGATIVE)
[2021-01-20] MEDS: Pantoprazole 40 MG Vial IV SCH ×2 (12:34→21:07)
[2021-01-20] MEDS: Lactated Ringers 1,000 ML IV SCH (15:27)
[2021-01-21] MEDS: Lactated Ringers 1,000 ML IV SCH (06:01)
[2021-01-21] MEDS ORDERED: fentaNYL 250 MCG/5 ML SDV ONE ×2 (06:09→10:42)
[2021-01-21] MEDS ORDERED: Rocuronium 50 MG/5 ML Vial ONE (06:10)
[2021-01-21] MEDS ORDERED: Propofol 200 MG/20 ML SDV ONE (06:10)
[2021-01-21] MEDS ORDERED: Dexamethasone 4 MG/ML SDV ONE (06:10)
[2021-01-21] MEDS ORDERED: Ondansetron 4 MG/2 ML SDV ONE (06:10)
[2021-01-21] MEDS ORDERED: Neostigmine Methylsulfate 1 MG/ML 5 ML Syringe ONE (06:10)
[2021-01-21] MEDS ORDERED: Glycopyrrolate 0.2 MG/ML 5 ML MDV ONE (06:10)
[2021-01-21] MEDS ORDERED: Succinylcholine 200 MG/10 ML MDV ONE (06:10)
[2021-01-21] MEDS ORDERED: Meropenem 500 MG SDV ONE (07:33)
[2021-01-21] MEDS ORDERED: Bupivacaine 0.5%/EPINEPHrine 1:200,000 50 ML MDV ONE (07:33)
[2021-01-21] MEDS ORDERED: Bupivacaine 0.5% 50 ML MDV ONE (07:36)
[2021-01-21] MEDS ORDERED: Lidocaine 1% with EPINEPHrine 1:100,000 50 ML MDV ONE (07:36)
[2021-01-21] MEDS: Pantoprazole 40 MG Vial IV SCH (08:43)
[2021-01-21] MEDS ORDERED: Magnesium Sulfate 1.8 GM in Sodium Chloride 0.9% 100 ML IV SCH (09:00)
[2021-01-21] MEDS ORDERED: cefOXitin 2 GM in Sodium Chloride 0.9% 50 ML IV ONE (09:00)
[2021-01-21] MEDS ORDERED: Ketamine 500 MG/5 ML MDV IV SCH (09:00)
[2021-01-21] MEDS ORDERED: Ropivacaine 30 ML, dexAMETHasone 8 MG, EPINEPHrine 0.4 MG, Sodium Chloride 0.9% 47.6 ML NERVRT SCH ×4 (09:00)
[2021-01-21] MEDS ORDERED: Magnesium Sulfate 2 GM in Sodium Chloride 0.9% 250 ML IV ONE (09:00)
[2021-01-21] MEDS ORDERED: Ketamine 50 MG in Sodium Chloride 0.9% 49.5 ML IV SCH (09:00)
[2021-01-21] MEDS ORDERED: cefOXitin 2 GM in Sodium Chloride 0.9% 50 ML IV SCH (10:00)
--- NOTE | 2021-01-21 10:28 | HP ---
Marcella presented to the clinic today for consultation of her left upper quadrant abdominal pain. She states the pain started on 01/05/2021 and she was diagnosed in an ED at [facility] with pleurisy. The pain gradually worsened and radiated to her left upper quadrant. She states it is associated with decreased appetite, nausea, vomiting. Bowel movements though have been regular. Pain is worsening. Eating makes her pain worse and the only thing that helps alleviate the pain is oxycodone, which she has gotten from the emergency room. She reports pain on the pain scale of 1 to 10 of 4/10. A CT scan was done on 01/15/2021 when she was in the emergency room and revealed a partial small-bowel obstruction with mesenteric swirling. CURRENT MEDICATIONS: Oxycodone 5 mg q.4 hours p.r.n. pain, Zanaflex 2 mg q.6 hours p.r.n. muscle spasms, Estrace 1 mg by mouth once daily, and multivitamin Childrens Chewable b.i.d., vitamin B12 sublingual 1000 mcg daily calcium citrate one tablet b.i.d., B 100 one tablet daily, MiraLAX powder 17 g by mouth twice a day, vitamin D 50,000 units one capsule Monday, Monday, and Monday, copper 2 mg one capsule by mouth once a day, Colace 100 mg two at bedtime. PAST MEDICAL HISTORY: Includes morbid obesity, benign essential hypertension, fatty liver disease, irritable bowel syndrome, menopausal hot flashes, mixed hyperlipidemia, history of obstructive sleep apnea with CPAP prior to losing weight, type 2 diabetes without complication. SOCIAL HISTORY: Single. Employment, currently unemployed. Smoking history none. Caffeine, drinks Frappuccino 1 to 2 per day. Alcohol, two wine Coke coolers 1 to 2 times per week, carbonation as wine coolers. Children one. FAMILY HISTORY: Positive for heart disease, diabetes, hypertension. REVIEW OF SYSTEMS: See chief complaint. CONSTITUTIONAL: No fever, chills, or night sweats. SKIN: No rashes, pigment changes, or lesions of concern. HEENT: Has been having some really bad headaches. No ear pain, loss of hearing, blurred or double vision, nasal discharge or sore throat. CARDIOVASCULAR: Has left-sided chest pain, feels her heart beating fast and slow. RESPIRATORY: No cough, but is short of breath with pain. ENDOCRINE: No history of polyuria, polydipsia, skin or hair changes, heat or cold intolerance. HEMATOLOGIC: Negative. Denies lymph node tenderness or swelling. : No change in urine or blood in urine. MUSCULOSKELETAL: No joint pain or swelling. NEUROLOGIC: No history of focal neurologic symptoms, spells, memory changes. PSYCHIATRIC: Has had significant increase in alcohol intake over the past couple of months. Denies anxiety, depression or panic. Remainder of review of systems negative for any pertinent positives or negatives. DIET: Step 2 to 3, protein unknown but mainly eating meats. Exercises by walking. Fluids, states she drinks as much as she can and mainly drinks sugar-free Gatorade. Vitamin, recently started her recommended vitamins. OBJECTIVE: Marcella Grimes is a pleasant 35-year-old female. She is alert and orientated. Weight is 140 pounds, height 4 feet 11 inches, temperature 98.3, pulse 66, respirations 16. HEENT: Negative. Color good. SKIN: Warm and dry. LUNGS: Clear to auscultation in all four avina. HEART: Regular rate and rhythm. ABDOMEN: Tenderness is noted in the left upper quadrant. EXTREMITIES: Negative for peripheral edema. SKIN: Without rash. NEURO: Cranial nerves 2 through 12 intact. MUSCULOSKELETAL: Deep tendon reflexes are 2+ and equal bilaterally. PSYCHIATRIC: Mood and affect appropriate, orientated x3. Memory intact. ASSESSMENT: 1. Partial small bowel obstruction. 2. Left upper quadrant abdominal pain. 3. Fatty liver. 4. History of alcohol consumption. 5. Postsurgical malabsorption, not classified elsewhere. 6. Status post Ele-en-Y gastric bypass surgery. 7. Then B12 deficiency. 8. Vitamin B complex deficiency. 9. Vitamin D deficiency. 10.Zinc deficiency. 11.Vitamin A deficiency. 12.Copper deficiency. PLAN: 1. Admit to [facility]. Orders written. Scheduled and have consent signed for exploratory laparotomy for release of partial small bowel obstruction, possible bowel resection on 01/21/2021. General anesthesia. Henrik Sharpe MD. 2. Cefoxitin 2 g on-call IV to OR. Dilaudid SHAFTING CLEANER. Acetaminophen 650 mg every 4 hours p.r.n. fever, pain. Ketamine bolus and ketamine infusion ordered. TAP block ordered. Magnesium bolus and magnesium infusion ordered. LR 125 mg/hour, multivitamin LR with MultiVites to run 1 L at 200 mg per 5 mL, Zofran 4 mg IV q.4 hours p.r.n. nausea and vomiting, Protonix 40 mg IV b.i.d. Ice chips. N.p.o. after midnight. I and O. Incentive spirometer every hour while awake, up ad regino, vital signs every 4 hours. SCDs. Labs to be drawn include hemogram, CMP, vitamin B12, vitamin D, COVID test, and ferritin. After preoperative evaluation and discussion of possible risks and possible complications, patient wishes to proceed with surgical procedure. The patient is cleared for general anesthesia. Maryjane Monroe PA-C /[id number]
--- NOTE | 2021-01-21 10:29 | PN ---
DATE OF SERVICE: 01/21/2021 SUBJECTIVE: Marcella is n.p.o. for exploratory laparotomy for release of partial small bowel obstruction. Case to follow. Today, she states the pain has been controlled with the PHOTO MACHINE OPERATOR. REVIEW OF SYSTEMS: Remainder of review of systems negative for any pertinent positives and negatives. OBJECTIVE: GENERAL: Marcella Grimes is a pleasant 35-year-old female. She is alert and orientated. VITAL SIGNS: TPR 95.8, 43, 16, blood pressure 130/64. HEENT: Negative. NECK: Supple. HEART: Regular rate and rhythm. LUNGS: Clear. ABDOMEN: Tenderness remains in the left upper quadrant. EXTREMITIES: Without peripheral edema. ASSESSMENT: Partial small bowel obstruction. PLAN: Orders to be written postoperatively. Maryjane Monroe PA-C /[id number]
[2021-01-21] MEDS ORDERED: Lactated Ringers 1,000 ML ONE (11:12)
[2021-01-21] MEDS ORDERED: Cyclobenzaprine 10 MG Tab PO PRN (12:57)
[2021-01-21] MEDS ORDERED: Dextrose 5%-Lactated Ringers 1,000 ML IV SCH (13:00)
[2021-01-21] MEDS ORDERED: diphenhydrAMINE 50 MG/ML SDV IVPUSH PRN (13:00)
[2021-01-21] MEDS ORDERED: Acetaminophen 500 MG Tab PO PRN (13:00)
[2021-01-21] MEDS ORDERED: Calcium Gluconate 10% 1 GM/10 ML SDV IVPUSH PRN (13:00)
[2021-01-21] MEDS ORDERED: hydrOXYzine HCL 100 MG/2 ML SDV IM PRN (13:00)
[2021-01-21] MEDS ORDERED: Metoclopramide 10 MG/2 ML SDV IVPUSH PRN (13:00)
[2021-01-21] MEDS ORDERED: Labetalol 20 MG/4 ML Syringe IVPUSH PRN (13:00)
[2021-01-21] MEDS ORDERED: Ondansetron 4 MG/2 ML SDV IVPUSH PRN (13:00)
[2021-01-21] MEDS: Acetaminophen 500 MG Tab PO SCH ×2 (13:49→21:34)
[2021-01-21] MEDS: cefOXitin 2 GM in Sodium Chloride 0.9% 50 ML IV SCH ×2 (15:50→21:35)
[2021-01-21] MEDS ORDERED: MVI, Adult with Vitamin K 10 ML, Thiamine 200 MG, Zinc/Copper/Manganese/Selenium 1 ML i... IV SCH ×4 (16:00)
[2021-01-21] MEDS: Heparin Sodium 5,000 Units/ML Vial SUBCUT SCH (20:33)
[2021-01-21] MEDS: Docusate Sodium 100 MG Cap PO SCH (21:34)
[2021-01-22] MEDS ORDERED: Iopamidol 612 MG/ML 50 ML SDV PO STA (03:56)
[2021-01-22] MEDS: cefOXitin 2 GM in Sodium Chloride 0.9% 50 ML IV SCH ×4 (03:57→22:38)
[2021-01-22] MEDS: Acetaminophen 500 MG Tab PO SCH ×3 (05:42→22:36)
[2021-01-22] MEDS ORDERED: Ondansetron 4 MG Tab.DIS PO PRN (07:06)
[2021-01-22] MEDS: HYDROmorphone 2 MG Tab PO PRN ×4 (07:43→22:36)
[2021-01-22] MEDS: Heparin Sodium 5,000 Units/ML Vial SUBCUT SCH ×2 (07:56→20:21)
[2021-01-22] MEDS ORDERED: Pantoprazole 40 MG Vial IV SCH (09:00)
[2021-01-22] MEDS ORDERED: SCOPOLAMINE PATCH CHECK TOP SCH (09:00)
--- NOTE | 2021-01-22 09:08 | PN ---
DATE OF SERVICE: 01/22/2021 SUBJECTIVE: Marcella reports her pain is controlled. Oral intake was 2330. Urine output is 5000. She has been up, ambulating. Has no questions or concerns. OBJECTIVE: GENERAL: Marcella is a pleasant 35-year-old female. She is alert and orientated. VITAL SIGNS: TPR 96, 54, 18, blood pressure 150/79. HEENT: Negative. NECK: Supple. HEART: Regular rate and rhythm. LUNGS: Clear. ABDOMEN: Dressings dry and intact. Abdominal binder is on. EXTREMITIES: Without peripheral edema. ASSESSMENT: Exploratory laparotomy with reduction of small bowel volvulus and closure of internal hernia, repair of recurrent incarcerated incisional hernia, repair of incarcerated umbilical hernia, and placement of Interceed mesh. POSTOPERATIVE DIAGNOSES: 1. Small-bowel volvulus. 2. Recurrent incarcerated incisional hernia. 3. Incarcerated umbilical hernia. 4. Extensive intraabdominal adhesions. 5. Date of procedure: 01/21/2021. Surgeon: Henrik Sharpe MD. PLAN: 1. Decrease IV to 100 mL per hour. 2. Step 3 gastric bypass diet. 3. Discontinue CLAIMS ADMINISTRATOR and continuous pulse ox. 4. Discontinue telemetry. 5. Dulcolax tablets 10 mg b.i.d. p.o. 6. Dilaudid 2 to 4 mg q.4 hours p.r.n. pain. 7. May shower. 8. We will evaluate p.r.n. or in a.m. Maryjane Monroe PA-C /[id number]
--- NOTE | 2021-01-22 09:08 | CR ---
[facility] [employer] HISTORY: Postbariatric surgery FINDINGS: Patient swallowed water-soluble contrast. Upright views of the abdomen show no evidence of extravasation or obstruction. IMPRESSION: Status post bariatric surgery No extravasation or obstruction seen
[2021-01-22] MEDS: Dextrose 5%-Lactated Ringers 1,000 ML IV SCH (09:32)
[2021-01-22] MEDS: Estradiol 0.5 MG Tab PO SCH (09:59)
[2021-01-22] MEDS: Celecoxib 200 MG Cap PO SCH ×2 (10:00→20:21)
[2021-01-22] MEDS: Bisacodyl 5 MG Tab PO SCH ×2 (10:00→20:21)
[2021-01-22] MEDS: Docusate Sodium 100 MG Cap PO SCH ×2 (10:05→20:25)
[2021-01-22] MEDS ORDERED: MVI, Adult with Vitamin K 10 ML, Thiamine 200 MG, Zinc/Copper/Manganese/Selenium 1 ML i... IV SCH ×4 (16:00)
[2021-01-23] MEDS: Dextrose 5%-Lactated Ringers 1,000 ML IV SCH (03:14)
[2021-01-23] MEDS: HYDROmorphone 2 MG Tab PO PRN (03:19)
[2021-01-23] MEDS: cefOXitin 2 GM in Sodium Chloride 0.9% 50 ML IV SCH (03:20)
[2021-01-23] MEDS: Acetaminophen 500 MG Tab PO SCH (05:38)
[2021-01-23] MEDS ORDERED: Pantoprazole 40 MG Delayed-Release Granules 1 Packet PO SCH (07:30)
[2021-01-23] MEDS: Heparin Sodium 5,000 Units/ML Vial SUBCUT SCH (07:41)
[2021-01-23] MEDS ORDERED: Magnesium Hydroxide 400 MG/5 ML Susp 30 ML Cup PO PRN (07:51)
[2021-01-23] MEDS ORDERED: Cyanocobalamin (Vitamin B12) 1,000 MCG/ML SDV IM ONE (09:00)
[2021-01-23] MEDS: Estradiol 0.5 MG Tab PO SCH (09:09)
[2021-01-23] MEDS: Bisacodyl 5 MG Tab PO SCH (09:09)
[2021-01-23] MEDS: Celecoxib 200 MG Cap PO SCH (09:09)
--- NOTE | 2021-01-24 15:02 | DISCH ---
FINAL DIAGNOSES: 1. Partial small bowel obstruction associated with small bowel volvulus. 2. Recurrent incarcerated incisional hernia. 3. Incarcerated umbilical hernia. 4. Extensive intraabdominal adhesions. 5. Bariatric surgery status, status post Ele-en-Y gastric bypass. 6. History of hypertension, in remission status post Ele-en-Y gastric bypass. 7. History of type 2 diabetes mellitus, in remission status post Ele-en-Y gastric bypass. 8. History of irritable bowel syndrome. 9. History of mixed hyperlipidemia. 10.Obstructive sleep apnea, on CPAP. 11.History of fatty liver. OPERATIVE PROCEDURES: Done on 01/21, exploratory laparotomy with lysis of adhesions and: 1. Reduction of small bowel volvulus and closure of incisional hernia. 2. Repair of recurrent incarcerated incisional hernia. 3. Repair of incarcerated umbilical hernia. 4. Placement of Interceed mesh to limit recurrent adhesion formation between pelvic and abdominal wall and underlying viscera. SUMMARY: This is a 35-year-old status post Ele-en-Y gastric bypass. The original procedure was done in [place], and she presents now with crampy abdominal pain. CT scan shows small bowel volvulus. She was admitted overnight for hydration and underwent exploratory laparotomy on 01/21 with the above-noted procedures. Postoperatively, the patient took a little while to get her bowels moving, but otherwise had a smooth postoperative course. She will be discharged home on Dilaudid 2 mg q.6 hours p.r.n. pain, #12; Celebrex 200 mg p.o. b.i.d.; and Tylenol p.r.n. she will be given some to augment GI tract motility, and she will be following up with Maryjane Monroe at [facility] on Monday, 01/29 at 10 a.m. /[id number]
--- NOTE | 2021-01-25 13:53 | OR ---
DATE OF PROCEDURE: 01/21/2021 SURGEON: Henrik Sharpe MD PREOPERATIVE DIAGNOSIS: Partial small bowel obstruction associated with probable small bowel volvulus. POSTOPERATIVE DIAGNOSES: 1. Small bowel obstruction associated with small bowel volvulus. 2. Recurrent incarcerated incisional hernia. 3. Incarcerated umbilical hernia. 4. Extensive intraabdominal adhesions. PROCEDURES PERFORMED: Exploratory laparotomy with lysis of adhesions: 1. Reduction of small bowel volvulus and closure of internal hernia (92133). 2. Repair of recurrent incarcerated incisional hernia (16076). 3. Repair of incarcerated umbilical hernia (07422). 4. Placement of Interceed mesh to displaced pelvic and abdominal wall from underlying viscera to reduce recurrent adhesion formation (67429). ANESTHESIA: General. FOLDER SEAMER: Maryjane Monroe PA-C INDICATIONS FOR PROCEDURE: This is a 35-year-old female presenting with a picture of partial small bowel obstruction. CT scan was obtained yesterday which showed a swelling mesentery suggestive of small bowel volvulus. While n.p.o., the patient was quite comfortable, and she was admitted for IV hydration, and the plan is to proceed with exploratory laparotomy with reduction of volvulus, small bowel resection as indicated, and other procedures as indicated. Potential risks including bleeding and perforation were discussed, and the patient wishes to proceed. DETAILS OF PROCEDURE: The patient was taken to the operating room and placed in a supine position. After general endotracheal anesthesia was induced, a Alonso catheter was inserted and the abdomen prepped and draped. The previous upper midline incision was reused and carried down through the skin, subcutaneous tissue, fascia, and into the peritoneal cavity. Significant adhesions were present between the abdominal wall and the underlying omentum and transverse colon. These were taken down. The patient was noted to have some mesh present within the upper 2/3rds of the incision. This was then incised. At the upper end of the incision, there was recurrent incisional hernia. The contents of this consisted of primarily preperitoneal fat. These were dissected free, and this was then closed with augmentation of the present mesh as part of the repair. On the inferior aspect, the patient was also noted to have an incarcerated umbilical hernia which contained a tongue of omentum incarcerated within it. This was freed up and closed from within. Inspection of the small bowel showed a small bowel volvulus between a mesenteric defect. This was not directly underneath the jejunojejunostomy. It was somewhat adjacent to it in the same general area, and the volvulus was from a right to left direction. This was reduced and the mesenteric defect closed. The small bowel otherwise appeared to be unremarkable with no areas of stricturing or problems per se. The mesenteric defect was closed with a permanent 2-0 silk stitch. At this point, the area of dissection was inspected. Meropenem irrigation was placed, and initially, the previously placed mesh was reapproximated with a 0 Prolene stitch underlying this, and the Interceed mesh was placed to limit recurrent adhesion formation. At the upper end of the incision, the incisional hernia was closed with initiation of the fascial closure on the superior aspect of the incision which incorporated some of the underlying mesh inferiorly. The umbilical hernia was closed with a [id number] stitch of #2 Vicryl stitch from within, and the 2 stitches were then in the midline, closing the fascia overlying this area. Prior to closure, bilateral transversus abdominis plane blocks were placed, and the fascia at this point was anesthetized with 1% lidocaine mixed with Marcaine. Subcutaneous tissue was approximated with some 3-0 and 4-0 Vicryl stitch and the skin with dina. A dressing was applied. The patient was taken to the recovery room in satisfactory condition. One additional note on this patient is that she was previously noted to have some fatty liver. The liver today appeared to be entirely normal with normal size and no evidence of fatty infiltration grossly. The physician biology research assistant, Maryjane Monroe, played an essential role in assisting in this case, helping to position the patient, retract structures as needed, as well as suturing and cutting sutures when indicated. Her presence improved the patient's safety and decreased the operative time. Henrik Sharpe MD /[id number]
== END 2021-01-23 10:30 | disposition home or self-care (01) | DRG 329 ==
LOC: JP.MS 09:31
PROVIDERS: ADMIT Surgery; ATTEND Surgery
PROC: 0DS80ZZ Reposition Small Intestine, Open Approach (ICD-10-PCS; principal; 2021-01-20)
PROC: 0WQF0ZZ Repair Abdominal Wall, Open Approach (ICD-10-PCS; 2021-01-20)
PROC: 0WQF0ZZ Repair Abdominal Wall, Open Approach (ICD-10-PCS; 2021-01-20)
PROC: 3E0M05Z Introduction of Adhesion Barrier into Peritoneal Cavity, Open Approach (ICD-10-PCS; 2021-01-20)
DX: K43.0 Incisional hernia with obstruction, without gangrene (principal); K56.2 Volvulus; K56.51 Intestinal adhesions [bands], with partial obstruction; K91.2 Postsurgical malabsorption, not elsewhere classified; I10 Essential (primary) hypertension; K42.9 Umbilical hernia without obstruction or gangrene; E11.9 Type 2 diabetes mellitus without complications; K58.9 Irritable bowel syndrome, unspecified; E78.2 Mixed hyperlipidemia; G47.33 Obstructive sleep apnea (adult) (pediatric); K76.0 Fatty (change of) liver, not elsewhere classified; E66.01 Morbid (severe) obesity due to excess calories; E53.8 Deficiency of other specified B group vitamins; E53.9 Vitamin B deficiency, unspecified; E55.9 Vitamin D deficiency, unspecified; E50.9 Vitamin A deficiency, unspecified; E60 Dietary zinc deficiency; E61.0 Copper deficiency; Z20.822 Contact with and (suspected) exposure to COVID-19; Z98.84 Bariatric surgery status; Z99.81 Dependence on supplemental oxygen; Z79.899 Other long term (current) drug therapy
CPT/HCPCS: 0241U; 36415; 74240; 74240-26; 80053; 82306; 82607; 82728; 83735; 84100; 84425; 85025; 94762; A9270-GY; C9113; J0171; J0330; J0694; J1100; J1170; J1644; J2020; J2185; J2405; J2704; J2710; J2795; J3010; J3411; J3420; J3475; J3490; J7050; J7120; J7121; Q9967

== ENCOUNTER 2021-08-10 04:46 | Day surgery (SDC) | payer MEDICAID ==
[2021-08-10] MEDS ORDERED: Celecoxib 200 MG Cap PO ONE (05:30)
[2021-08-10] MEDS ORDERED: Acetaminophen 500 MG Tab PO ONE (05:30)
[2021-08-10] MEDS ORDERED: Dextrose 5%-Lactated Ringers 1,000 ML IV SCH (06:00)
[2021-08-10] MEDS ORDERED: Meropenem 500 MG SDV ONE (06:39)
[2021-08-10] MEDS ORDERED: Bupivacaine 0.5%/EPINEPHrine 1:200,000 50 ML MDV ONE (06:39)
[2021-08-10] MEDS ORDERED: ceFAZolin 2 GM in Premix Bag 1 BAG IV ONE (07:00)
[2021-08-10] MEDS ORDERED: Lidocaine 1% 50 ML MDV ONE (07:01)
[2021-08-10] MEDS ORDERED: fentaNYL 250 MCG/5 ML SDV ONE (07:08)
[2021-08-10] MEDS ORDERED: Rocuronium 50 MG/5 ML Vial ONE (07:09)
[2021-08-10] MEDS ORDERED: Propofol 200 MG/20 ML SDV ONE (07:09)
[2021-08-10] MEDS ORDERED: Neostigmine Methylsulfate 1 MG/ML 5 ML Syringe ONE (07:09)
[2021-08-10] MEDS ORDERED: Glycopyrrolate 0.2 MG/ML 5 ML MDV ONE (07:09)
[2021-08-10] MEDS ORDERED: Dexamethasone 4 MG/ML SDV ONE (07:09)
[2021-08-10] MEDS ORDERED: Ondansetron 4 MG/2 ML SDV ONE (07:09)
[2021-08-10] MEDS ORDERED: Succinylcholine 200 MG/10 ML MDV ONE (07:09)
[2021-08-10] MEDS ORDERED: Ketamine 500 MG/5 ML MDV IV SCH (07:30)
[2021-08-10] MEDS ORDERED: Ketamine 14 MG in Sodium Chloride 0.9% 19.86 ML IV SCH (07:30)
[2021-08-10] MEDS ORDERED: Ropivacaine 30 ML, dexAMETHasone 8 MG, EPINEPHrine 0.4 MG, Sodium Chloride 0.9% 47.6 ML NERVRT SCH ×4 (07:30)
[2021-08-10] MEDS ORDERED: Ketorolac 30 MG/ML SDV ONE (08:25)
[2021-08-10] MEDS ORDERED: Lactated Ringers 1,000 ML ONE (08:35)
[2021-08-10] MEDS ORDERED: fentaNYL 100 MCG/2 ML SDV IVPUSH ONE (09:08)
[2021-08-10] MEDS ORDERED: hydrOXYzine HCL 100 MG/2 ML SDV IM ONE (09:08)
[2021-08-10] MEDS ORDERED: HYDROmorphone 2 MG Tab PO PRN (10:45)
== END 2021-08-10 12:00 | disposition home or self-care (01) ==
LOC: JP.SDS 04:46
PROVIDERS: ATTEND Surgery
DX: K43.0 Incisional hernia with obstruction, without gangrene (principal); K42.0 Umbilical hernia with obstruction, without gangrene; K66.0 Peritoneal adhesions (postprocedural) (postinfection); G47.33 Obstructive sleep apnea (adult) (pediatric); E66.3 Overweight; E11.9 Type 2 diabetes mellitus without complications; K21.9 Gastro-esophageal reflux disease without esophagitis; E78.5 Hyperlipidemia, unspecified; E66.9 Obesity, unspecified; K58.9 Irritable bowel syndrome, unspecified; G47.00 Insomnia, unspecified; F33.40 Major depressive disorder, recurrent, in remission, unspecified; I10 Essential (primary) hypertension; Z98.890 Other specified postprocedural states; Z79.890 Hormone replacement therapy
CPT/HCPCS: 36415; 49657; 80048; 83735; 84100; 85027; A9270; C1781; J0171; J0330; J0690; J1100; J1885; J2001; J2020; J2185; J2405; J2704; J2710; J2795; J3010; J3410; J3490; J7120; J7121; 88302

== ENCOUNTER 2021-09-15 22:47 | Emergency (ER) | payer MEDICAID ==
[2021-09-15] MEDS ORDERED: HYDROmorphone 1 MG/ML Syringe IVPUSH ONE (23:11)
[2021-09-15] MEDS ORDERED: Ondansetron 4 MG/2 ML SDV IVPUSH ONE (23:11)
[2021-09-15] MEDS ORDERED: Sodium Chloride 0.9% 50 ML IV STA (23:28)
[2021-09-15] MEDS ORDERED: Iopamidol 612 MG/ML 100 ML Bottle IV STA (23:28)
[2021-09-16 00:02] LABS: CORONAVIRUS COVID-19 NAA NEGATIVE (NEGATIVE)
[2021-09-16] MEDS ORDERED: Aluminum Hydroxide/Magnesium Hydroxide/Simethicone Susp 30 ML Cup PO STA (00:33)
== END 2021-09-16 00:46 | disposition home or self-care (01) ==
LOC: JP.ED 22:47
DX: R10.31 Right lower quadrant pain (principal); R14.3 Flatulence; I10 Essential (primary) hypertension; E11.9 Type 2 diabetes mellitus without complications; E66.9 Obesity, unspecified; Z68.27 Body mass index [BMI] 27.0-27.9, adult; Z88.8 Allergy status to other drugs, medicaments and biological substances; Z20.822 Contact with and (suspected) exposure to COVID-19
CPT/HCPCS: 0241U; 36415; 74177; 80053; 83605; 85025; 86140; 96374; 96375; 99283; 99284-25; A9270-GY; J1170; J2405; Q9967

== ENCOUNTER 2022-01-10 11:53 | Emergency (ER) | payer MEDICAID | END 2022-01-10 15:02 | disposition home or self-care (01) | LOC: JP.ED 11:53 | DX: H60.92 Unspecified otitis externa, left ear (principal); I10 Essential (primary) hypertension; E11.9 Type 2 diabetes mellitus without complications; E66.9 Obesity, unspecified; Z68.45 Body mass index [BMI] 70 or greater, adult; Z88.8 Allergy status to other drugs, medicaments and biological substances | CPT/HCPCS: 99282 ==

== ENCOUNTER 2022-12-17 23:38 | Emergency (ER) | payer MEDICAID ==
[2022-12-18] MEDS ORDERED: Amitriptyline 25 MG Tab PO ONE (00:48)
== END 2022-12-18 01:50 | disposition home or self-care (01) ==
LOC: JP.ED 23:38
DX: G62.9 Polyneuropathy, unspecified (principal); I10 Essential (primary) hypertension; Z72.0 Tobacco use; Z88.8 Allergy status to other drugs, medicaments and biological substances
CPT/HCPCS: 99283; A9270